=== PATIENT | male | born 1960 | race Caucasian/White ===

== ENCOUNTER 2016-05-31 20:28 | Inpatient (IN) | payer BC ==
[~2016-05-31] VITALS: Ht 177.8 cm; Wt 126.0 kg
[2016-05-31] MEDS ORDERED: SODIUM CHLORIDE 0.9% 500ML 500 ML IV STA (21:17)
[2016-05-31] MEDS ORDERED: OPTIRAY 320 IV PRN (21:30)
[2016-05-31 21:56] LABS: BASO % 0.6 %; BASO ABS # 0.06 K/uL (0-0.2); EOS % 0.7 %; HEMATOCRIT 36.7 % (42-52); IG% 0.3 %; LYMPH % 24.8 %; LYMPH ABS # 2.69 K/uL (1.2-3.4); MEAN CELL VOLUME 58.4 fL (80-100); MEAN CORPUSCULAR HEMOGLOBIN 19.3 pg (25-34); MEAN PLATELET VOLUME 9.2 fL (7.4-10.4); MONO % 11.8 %; NEUT % 61.8 %; PLATELET COUNT 189 K/uL (130-400); RED BLOOD COUNT 6.28 M/uL (4.7-6.1); WHITE BLOOD COUNT 10.84 K/uL (4.8-10.8)
[2016-05-31 22:15] LABS: BUN/CREATININE RATIO 18.5 (10-20); CALCIUM 8.7 mg/dl (8.5-10.1); INR 1.1 (0.9-1.1); MAGNESIUM 2.1 mg/dl (1.8-2.4); PARTIAL THROMBOPLASTIN RATIO 1.1; POTASSIUM 3.8 mmol/L (3.5-5.1); PROTHROMBIN TIME (PATIENT) 11.9 SECONDS (9.0-12.0)
[2016-05-31 22:19] LABS: CKMB/CK RATIO 1.2 (0-3.0)
--- NOTE | 2016-05-31 22:34 | DIAGNOSTIC IMAGING REPORT ---
CT ANGIOGRAM OF THE CHEST CLINICAL HISTORY: Peritoneal vein thrombus. Chest pain. COMPARISON STUDY: No previous studies for comparison. TECHNIQUE: Following the IV administration of 105 mL of Optiray-320, CT angiogram of the thorax was performed from the thoracic inlet to the lung bases utilizing the pulmonary embolus protocol. Images are reviewed in the axial, sagittal, and coronal planes. IV contrast was administered without complication. MIP imaging was performed. CT DOSE: 780.46 mGy.cm FINDINGS: No pathologically enlarged axillary mediastinal or hilar lymph nodes were visualized. There was no evidence of thoracic aortic dilatation. There is a right upper lobe pulmonary artery filling defect consistent with an acute embolus. No pleural effusions are visualized. There was no evidence of focal pulmonary consolidation. IMPRESSION: 1. Right upper lobe segmental pulmonary artery filling defect, consistent with acute pulmonary embolism. Electronically signed by: Madhu Vick M.D. 05/31/2016 10:33 PM Dictated Date/Time: 05/31/2016 10:29 PM
[2016-05-31] MEDS ORDERED: ENOXAPARIN 1 MG/KG SQ SCH (22:45)
[2016-05-31 22:49] LABS: COMPLETE YES; MICROCYTOSIS PRESENT
[2016-05-31] MEDS ORDERED: ENOXAPARIN 120 MG/0.8 ML SYR SQ STA (22:53)
[2016-05-31] MEDS ORDERED: ACETAMINOPHEN 325 MG TAB PO PRN (23:30)
[2016-05-31] MEDS ORDERED: ONDANSETRON INJ 2 MG/ML 2 ML VIAL IV PRN (23:30)
--- NOTE | 2016-05-31 23:41 | History and Physical ---
History & Physical Date & Time of Service: May 31, 2016 at 23:39 Chief Complaint: Dvt Peroneal Veins Primary Care Physician: No Doctor, Assigned History of Present Illness Source: patient, clinic records 55 year old male with no known past medical history presenting with Right leg swelling x 1 week. Patient used to follow up with Dr. Torres for PCP. Patient was at his usual state of health until last week when he started to notice right lower leg/calf swelling and pain. This progressed to the point that it affected his ambulation. No fever/chills. He denies chest pain, dyspnea, palpitations, nausea. Denies recent surgery, recent long plane or car rides, admits to being "a cough potato". 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 Patient presented to [facility] and was directed to [facility] for Right Leg US which showed Peroneal DVTs. He was then sent to the ED. Patient is hemodynamically stable. CT chest showed Right Upper Lobe Segmental Pulmonary Embolism. Hypercoagulable work up and Lovenox BID was started. On exam, patient is comfortable resting in bed. Denies chest pain, dyspnea, nausea, palpitations. Has mild-moderate right lower leg pain. No other symptoms. Past Medical/Surgical History Surgical Problems: (1) H/O knee surgery Status: Resolved Family History Cancer Diabetes mellitus Heart disease Hypertension Social History Smoking Status: Never Smoker Marital Status: Occupational Status: employed Multi-Drug Resistant Organisms History of MDRO: No Allergies Coded Allergies: Codeine (Verified Allergy, Severe, "BAD, BAD REACTION", 05/31/16) Polyethylene Glycol (Verified Allergy, Severe, CHEST PAIN, STOMACH PAIN AND UPSET, 05/31/16) Topiramate (Verified Allergy, Severe, CONFUSION, 05/31/16) Caffeine (Verified Allergy, Intermediate, SHAKINESS, 05/31/16) Meloxicam (Verified Allergy, Intermediate, ITCHINESS, LIGHTHEADEDNESS, GROGGY, 05/31/16) Penicillins (Verified Allergy, Unknown, RASH, 01/06/15) Home Medications No Active Prescriptions or Reported Meds Review of Systems Constitutional- no fever; no weight loss Eyes- no acute visual changes ENT- no sinus drainage; no pharyngitis Pulmonary- no cough, no wheezing, no shortness of breath Cardiac- no chest pain, no palpitations, no orthopnea, no dependent edema GI- no nausea, no vomiting, no diarrhea, no melena, no hematochezia - no dysuria, no hematuria Musculoskeletal- no arthralgias, no myalgias Derm- no rashes, no new skin lesions, no changing skin lesions Hematologic- no unusual bruising, no unusual bleeding Lymphatics- no adenopathy Endocrine- no polyuria or polydipsia; no heat or cold intolerance Neuro- no headaches, no focal neurologic symptoms Psych- no anxiety, no depression Physical Exam Vital Signs Date Time Temp Pulse Resp B/P Pulse Ox O2 Delivery O2 Flow Rate FiO2 05/31/16 21:50 80 20 122/79 95 Room Air 05/31/16 21:40 97 Room Air 05/31/16 20:35 37.7 91 16 129/88 96 Room Air General Appearance: WD/WN, no apparent distress Head: normocephalic, atraumatic Eyes: normal inspection, EOMI, sclerae normal ENT: normal ENT inspection, hearing grossly normal, pharynx normal Neck: supple, no adenopathy, thyroid normal, no JVD, trachea midline Respiratory/Chest: chest non-tender, lungs clear, normal breath sounds, no respiratory distress, no accessory muscle use Cardiovascular: regular rate, rhythm, no murmur Abdomen/GI: normal bowel sounds, non tender, soft Back: normal inspection, no CVA tenderness Extremities/Musculoskelatal: + pertinent finding (Right lower leg: (+) significant edema, moderate erythema and warmth, mild tenderness; left leg essentially normal) 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, no motor/sensory deficits, alert, normal mood/affect, normal reflexes, oriented x 3 Skin: normal color, warm/dry, no rash Lymphatic: no adenopathy Diagnostics Laboratory Results Results Past 24 Hours Test 05/31/16 21:40 05/31/16 21:51 05/31/16 23:30 Range/Units White Blood Count 10.84 4.8-10.8 K/uL Red Blood Count 6.28 4.7-6.1 M/uL Hemoglobin 12.1 14.0-18.0 g/dL Hematocrit 36.7 42-52 % Mean Corpuscular Volume 58.4 80-100 fL Mean Corpuscular Hemoglobin 19.3 25-34 pg Mean Corpuscular Hemoglobin Concent 33.0 32-36 g/dl Platelet Count 189 130-400 K/uL Mean Platelet Volume 9.2 7.4-10.4 fL Neutrophils (%) (Auto) 61.8 % Lymphocytes (%) (Auto) 24.8 % Monocytes (%) (Auto) 11.8 % Eosinophils (%) (Auto) 0.7 % Basophils (%) (Auto) 0.6 % Neutrophils # (Auto) 6.70 1.4-6.5 K/uL Lymphocytes # (Auto) 2.69 1.2-3.4 K/uL Monocytes # (Auto) 1.28 0.11-0.59 K/uL Eosinophils # (Auto) 0.08 0-0.5 K/uL Basophils # (Auto) 0.06 0-0.2 K/uL RDW Standard Deviation 31.9 36.4-46.3 fL RDW Coefficient of Variation 15.2 11.5-14.5 % Immature Granulocyte % (Auto) 0.3 % Immature Granulocyte # (Auto) 0.03 0.00-0.02 K/uL Microcytosis PRESENT Prothrombin Time 11.9 9.0-12.0 SECONDS Prothromb Time International Ratio 1.1 0.9-1.1 Activated Partial Thromboplast Time 28.3 21.0-31.0 SECONDS Partial Thromboplastin Ratio 1.1 Sodium Level 138 136-145 mmol/L Potassium Level 3.8 3.5-5.1 mmol/L Chloride Level 102 98-107 mmol/L Carbon Dioxide Level 27 21-32 mmol/L Anion Gap 9.0 3-11 mmol/L Blood Urea Nitrogen 19 7-18 mg/dl Creatinine 1.00 0.60-1.40 mg/dl Est Creatinine Clear Calc Drug Dose 103.6 ml/min Estimated GFR () 96.4 Estimated GFR (Non- 83.2 BUN/Creatinine Ratio 18.5 10-20 Random Glucose 95 70-99 mg/dl Calcium Level 8.7 8.5-10.1 mg/dl Magnesium Level 2.1 1.8-2.4 mg/dl Total Bilirubin 1.4 0.2-1 mg/dl Aspartate Amino Transf (AST/SGOT) 16 15-37 U/L Alanine Aminotransferase (ALT/SGPT) 22 12-78 U/L Alkaline Phosphatase 65 45-117 U/L Total Creatine Kinase 42 39-308 U/L Creatine Kinase MB 0.5 0.5-3.6 ng/ml Creatine Kinase MB Ratio 1.2 0-3.0 Total Protein 7.3 6.4-8.2 gm/dl Albumin 3.7 3.4-5.0 gm/dl Globulin 3.6 2.5-4.0 gm/dl Albumin/Globulin Ratio 1.0 0.9-2 Bedside Troponin I 0.000 0-0.045 ng/ml Diagnostic Radiology CT chest: IMPRESSION: 1. Right upper lobe segmental pulmonary artery filling defect, consistent with acute pulmonary embolism. Right Lower Leg Doppler: (+) Peroneal Vein DVT Impression Assessment and Plan 55 year old male with no known past medical history presenting with Right leg swelling x 1 week. ACUTE PULMONARY EMBOLISM, RIGHT UPPER LOBE, SEGMENTAL ACUTE DVT RIGHT PERONEAL VEIN - seems to be unprovoked - hemodynamically stable - hypercoagulable work up obtained, follow up echo ordered - Lovenox 1mg/kg q12h started transition to coumadin or NOACs in AM - will need Hematology referral for 1st Unprovoked DVT duration of treatment, possible screening for underlying malignancy, etc. MICROCYTIC ANEMIA - anemia panel ordered - no baseline Hg on file FULL CODE DISPOSITION lives at home with family VTE Prophylaxis VTE Risk Assessment Done? Y/N: Yes Risk Level: Moderate
--- NOTE | 2016-05-31 23:55 | EMERGENCY ROOM VISIT NOTE ---
History First contact with patient: 20:58 Chief Complaint: SWELLING TO EXTREMITY Stated Complaint: DVT PERONEAL VEINS History of Present Illness The patient is a 55 year old male who presents to the Emergency Department by private vehicle for evaluation of a DVT to the RIGHT lower extremity. He reports that he has had pain, redness, swelling to the RIGHT lower extremity over the past few days. He reports increasing pain and cramping with ambulation. He denies any numbness or tingling into the distal extremity. He was seen at the [facility] today and sent for ultrasounds. Ultrasound suspicious for DVT. The patient was directed to the emergency Department for further evaluation and management. Patient rates his current discomfort as a 4/10. He is tried nothing [id number] for symptoms. He denies any fevers, chills, headaches, dizziness, lightheadedness, chest pain, palpitations, shortness of breath, hemoptysis, nausea, vomiting, abdominal pain. The patient does drive a shuttle for a living. He denies any trauma to the affected area. He reports no history of smoking. There is no family history of blood clots or bleeding disorders. Review of Systems A complete 10-point Review of Systems was discussed with the patient, with pertinent positives and negatives listed in the History of Present Illness. All remaining Review of Systems questions can be considered negative unless otherwise specified. Past Medical/Surgical History Medical Problems: (1) Pulmonary embolism Surgical Problems: (1) H/O knee surgery Family History Family history was reviewed; no changes noted. Social History Smoking Status: Never Smoker Smokeless Tobacco Use: No Drug Use: none Marital Status: Housing Status: lives with significant other Occupation Status: employed Current/Historical Medications No Active Prescriptions or Reported Meds Allergies Coded Allergies: Codeine (Verified Allergy, Severe, "BAD, BAD REACTION", 05/31/16) Polyethylene Glycol (Verified Allergy, Severe, CHEST PAIN, STOMACH PAIN AND UPSET, 05/31/16) Topiramate (Verified Allergy, Severe, CONFUSION, 05/31/16) Caffeine (Verified Allergy, Intermediate, SHAKINESS, 05/31/16) Meloxicam (Verified Allergy, Intermediate, ITCHINESS, LIGHTHEADEDNESS, GROGGY, 05/31/16) Penicillins (Verified Allergy, Unknown, RASH, 01/06/15) Physical Exam Vital Signs Date Time Temp Pulse Resp B/P Pulse Ox O2 Delivery O2 Flow Rate FiO2 05/31/16 21:50 80 20 122/79 95 Room Air 05/31/16 21:40 97 Room Air 05/31/16 20:35 37.7 91 16 129/88 96 Room Air Pain Rating (0-10): 4 Physical Exam VITAL SIGNS - Vital signs and nursing notes were reviewed. GENERAL - 55-year-old male appearing his stated age who is in no acute distress. Communicates well with provider and answers questions appropriately. LUNGS - Chest wall symmetric without accessory muscle use, intercostals retractions, or central cyanosis. Normal vesicular breath sounds CTA B/L. No wheezes, rales, or rhonchi appreciated. CARDIAC - RRR with S1/S2. No murmur, rubs, or gallops appreciated. No reproducible tenderness to palpation appreciated over the anterior chest wall. EXTREMITIES - No clubbing or peripheral cyanosis. Moderate edema with erythema circumferential pattern noted to the RIGHT lower extremity extending from just below the knee to the ankle. Mildly warm to touch. No palpable cords. +3/5 radial and dorsalis pedis pulses palpated throughout. +5/5 strength noted in UE/ LE bilaterally. NEUROLOGIC - Cranial nerves II through XII grossly intact. Sensory intact to light touch throughout. PSYCH - A&Ox3 and cooperates fully with examiner. Pt is very pleasant and interacts well with examiner. Medical Decision & Procedures ER Provider Diagnostic Interpretation: Radiological imaging and reports were reviewed by myself. Radiologist's Interpretation as follows: CT ANGIOGRAM OF THE CHEST CLINICAL HISTORY: Peritoneal vein thrombus. Chest pain. COMPARISON STUDY: No previous studies for comparison. TECHNIQUE: Following the IV administration of 105 mL of Optiray-320, CT angiogram of the thorax was performed from the thoracic inlet to the lung bases utilizing the pulmonary embolus protocol. Images are reviewed in the axial, sagittal, and coronal planes. IV contrast was administered without complication. MIP imaging was performed. CT DOSE: 780.46 mGy.cm FINDINGS: No pathologically enlarged axillary mediastinal or hilar lymph nodes were visualized. There was no evidence of thoracic aortic dilatation. There is a right upper lobe pulmonary artery filling defect consistent with an acute embolus. No pleural effusions are visualized. There was no evidence of focal pulmonary consolidation. IMPRESSION: 1. Right upper lobe segmental pulmonary artery filling defect, consistent with acute pulmonary embolism. Laboratory Results 05/31/16 21:40 Red Blood Count 6.28, Mean Corpuscular Volume 58.4, Mean Corpuscular Hemoglobin 19.3, Mean Corpuscular Hemoglobin Concent 33.0, Mean Platelet Volume 9.2, Neutrophils (%) (Auto) 61.8, Lymphocytes (%) (Auto) 24.8, Monocytes (%) (Auto) 11.8, Eosinophils (%) (Auto) 0.7, Basophils (%) (Auto) 0.6, Neutrophils # (Auto ) 6.70, Lymphocytes # (Auto) 2.69, Monocytes # (Auto) 1.28, Eosinophils # (Auto ) 0.08, Basophils # (Auto) 0.06 05/31/16 21:40 Test 05/31/16 21:40 05/31/16 21:51 05/31/16 23:30 White Blood Count 10.84 K/uL (4.8-10.8) Red Blood Count 6.28 M/uL (4.7-6.1) Hemoglobin 12.1 g/dL (14.0-18.0) Hematocrit 36.7 % (42-52) Mean Corpuscular Volume 58.4 fL (80-100) Mean Corpuscular Hemoglobin 19.3 pg (25-34) Mean Corpuscular Hemoglobin Concent 33.0 g/dl (32-36) Platelet Count 189 K/uL (130-400) Mean Platelet Volume 9.2 fL (7.4-10.4) Neutrophils (%) (Auto) 61.8 % Lymphocytes (%) (Auto) 24.8 % Monocytes (%) (Auto) 11.8 % Eosinophils (%) (Auto) 0.7 % Basophils (%) (Auto) 0.6 % Neutrophils # (Auto) 6.70 K/uL (1.4-6.5) Lymphocytes # (Auto) 2.69 K/uL (1.2-3.4) Monocytes # (Auto) 1.28 K/uL (0.11-0.59) Eosinophils # (Auto) 0.08 K/uL (0-0.5) Basophils # (Auto) 0.06 K/uL (0-0.2) RDW Standard Deviation 31.9 fL (36.4-46.3) RDW Coefficient of Variation 15.2 % (11.5-14.5) Immature Granulocyte % (Auto) 0.3 % Immature Granulocyte # (Auto) 0.03 K/uL (0.00-0.02) Microcytosis PRESENT Prothrombin Time 11.9 SECONDS (9.0-12.0) Prothromb Time International Ratio 1.1 (0.9-1.1) Activated Partial Thromboplast Time 28.3 SECONDS (21.0-31.0) Partial Thromboplastin Ratio 1.1 Anion Gap 9.0 mmol/L (3-11) Est Creatinine Clear Calc Drug Dose 103.6 ml/min Estimated GFR () 96.4 Estimated GFR (Non- 83.2 BUN/Creatinine Ratio 18.5 (10-20) Calcium Level 8.7 mg/dl (8.5-10.1) Magnesium Level 2.1 mg/dl (1.8-2.4) Total Bilirubin 1.4 mg/dl (0.2-1) Aspartate Amino Transf (AST/SGOT) 16 U/L (15-37) Alanine Aminotransferase (ALT/SGPT) 22 U/L (12-78) Alkaline Phosphatase 65 U/L (45-117) Total Creatine Kinase 42 U/L (39-308) Creatine Kinase MB 0.5 ng/ml (0.5-3.6) Creatine Kinase MB Ratio 1.2 (0-3.0) Total Protein 7.3 gm/dl (6.4-8.2) Albumin 3.7 gm/dl (3.4-5.0) Globulin 3.6 gm/dl (2.5-4.0) Albumin/Globulin Ratio 1.0 (0.9-2) Bedside Troponin I 0.000 ng/ml (0-0.045) Procedure Patient was placed on the bus monitor and monitored throughout the entire extent of their stay. In addition, the patient's pulse oximetry was monitored throughout the entire stay. Any abnormalities or aberrancies were addressed appropriately. ECG Indication: other Rate (beats per minute): 84 Rhythm: normal sinus Findings: LAFB, no acute ischemic change, no ectopy Comparison ECG Date: no prior available ED Course Patient was seen and evaluated by myself. Labs were drawn, saline lock in place. Palpation ultrasound was assessed. EKG was obtained. CTA of the chest was ordered. Laboratory results demonstrate a mild leukocytosis and anemia. He has no significant electrolyte abnormalities. Cardiac enzymes and troponin are negative. CT results above. Laboratory results and imaging studies were reviewed with the patient who acknowledges understanding. The patient was treated with initial dose of Lovenox at the request of the hospitalist. Patient was admitted in stable condition. Medical Decision Given the patient's presentation and stated complaints, I did elect to perform the above-mentioned workup. The patient presents after being diagnosed with acute DVT. On initial assessment, the patient is found to have a low-grade fever and is slightly tachycardic. In the setting of DVT, concern is obviously for underlying PE. CTA was immediately obtained after patient's creatinine was cleared. CT confirms suspicion for acute PE in the RIGHT upper lobe. Patient is hemodynamically stable. [facility] with [facility]ox [facility] Patient admitted in stable condition. In the evaluation and treatment of this patient, the following differential diagnoses were considered: ID, ASC, Dysrhythmia, Angina, Mediastinitis, GERD, Esophagitis, PE, Pneumonia, Bronchitis, Costochondritis, Rib Fracture, Zoster. Impression Primary Impression: Pulmonary embolism Additional Impression: DVT (deep venous thrombosis) Departure Information Dispostion Admitted as an inpatient Condition FAIR Prescriptions No Active Prescriptions or Reported Meds Referrals No Doctor, Assigned (PCP) Patient Instructions Critical Access Hospital Problem Qualifiers Primary Impression: Pulmonary embolism Pulmonary embolism type: other Chronicity: acute Acute cor pulmonale presence: without acute cor pulmonale Qualified Codes: I26.99 - Other pulmonary embolism without acute cor pulmonale Additional Impression: DVT (deep venous thrombosis) DVT location: lower extremity Affected thrombotic vein of extremity: unspecified lower extremity distal vein Laterality: right Chronicity: acute Qualified Codes: I82.4Z1 - Acute embolism and thrombosis of unspecified deep veins of right distal lower extremity
[2016-06-01] VITALS (10 sets, daily range): BP systolic 124–151; BP diastolic 74–87; PULSE 65–82; TEMP 36.6–37; O2SAT 95–98; Ht 177.8 cm; Wt 126.0 kg
[2016-06-01 06:17] LABS: BASO % 0.2 %; BASO ABS # 0.02 K/uL (0-0.2); EOS % 1.6 %; HEMATOCRIT 34.5 % (42-52); IG% 0.2 %; LYMPH % 25.1 %; LYMPH ABS # 2.42 K/uL (1.2-3.4); MEAN CELL VOLUME 58.8 fL (80-100); MEAN CORPUSCULAR HEMOGLOBIN 18.9 pg (25-34); MEAN CORPUSCULAR HGB CONC 32.2 g/dl (32-36); MEAN PLATELET VOLUME 9.2 fL (7.4-10.4); MONO % 12.7 %; NEUT % 60.2 %; PLATELET COUNT 178 K/uL (130-400); RED BLOOD COUNT 5.87 M/uL (4.7-6.1); WHITE BLOOD COUNT 9.66 K/uL (4.8-10.8)
[2016-06-01 06:49] LABS: COMPLETE YES; MICROCYTOSIS PRESENT; OVALOCYTES 1+
[2016-06-01 06:51] LABS: BUN/CREATININE RATIO 19.5 (10-20); CALCIUM 8.5 mg/dl (8.5-10.1); CREATININE 0.97 mg/dl (0.60-1.40); POTASSIUM 3.8 mmol/L (3.5-5.1)
[2016-06-01 06:58] LABS: FERRITIN 265.4 ng/ml (8.0-388.0)
[2016-06-01] MEDS ORDERED: INFLUENZA ADMINISTRATION CHARGE ONE (08:00)
[2016-06-01] MEDS ORDERED: INFLUENZA VIRUS QUAD VACCINE 0.5 ML SYR IM. ONE (08:00)
[2016-06-01] MEDS: ENOXAPARIN 120 MG/0.8 ML SYR SQ SCH ×2 (10:35→21:34)
--- NOTE | 2016-06-01 12:16 | ECHOCARDIOGRAM REPORT ---
*NOTICE TO RECEIVING LIBERTARIAN AGENCY This information is strictly Confidential and protected under [place] law. [place] law prohibits you from making any further disclosure of this information unless further disclosure is expressly permitted by the written consent of the person to whom it pertains or is authorized by law. A general authorization for the release of medical or other information is not sufficient for this purpose. Hospital accepts no responsibility if the information is made available to any other person, INCLUDING THE PATIENT. Interpretation Summary * Name: JEANNETTE COOPER Study Date: 06/01/2016 09:48 AM BP: 130/83 mmHg * Patient Location: C.2T\S\S229\S\1 HR: 76 * : 1960 (M/d/yyyy) Gender: Male Height: 68 in * Age: 55 yrs Ethnicity: CA Weight: 268 lb * Ordering Physician: Goyo Lopez * Performed By: Gladis Gomez RDCS * * Reason For Study: Pulmonary Embolism * BSA: 2.3 m2 * -- Conclusions -- * The left ventricle is normal in size. * There is mild concentric left ventricular hypertrophy. * The left ventricular wall motion is normal. * Ejection Fraction = 55-60%. * There is trace tricuspid regurgitation. * Doppler findings do not suggest pulmonary hypertension. * Normal inferior vena cava diameter and respiratory variation suggests normal central venous pressure. Procedure Details * A complete two-dimensional transthoracic echocardiogram was performed (2D, M-mode, Doppler and color flow Doppler). * A contrast injection of Definity was performed to improve assessment of LV function. * Contrast was injected into an intravenous site in the right arm. * One vial of Definity ultrasound contrast was diluted in normal saline to a total volume of 10 ml. A total of '2' ml of solution was administered during imaging. * Lot # [id number] of Definity utilized for procedure. * Expiration date 1 MAY 12. * The attending nurse who injected the contrast agent was Parish Gaming RN. Left Ventricle * The left ventricle is normal in size. * There is mild concentric left ventricular hypertrophy. * Ejection Fraction = 55-60%. * Left ventricular systolic function is normal. * The left ventricular wall motion is normal. Right Ventricle * The right ventricle is normal in size and function. Atria * The left atrial size is normal. * Right atrial size is normal. * No ASD detected; PFO is not assessed. Mitral Valve * The mitral valve anatomy is normal. * There is no mitral valve stenosis. * There is trace mitral regurgitation. Tricuspid Valve * The tricuspid valve anatomy is normal. * There is no tricuspid stenosis. * There is trace tricuspid regurgitation. * Doppler findings do not suggest pulmonary hypertension. Aortic Valve * The aortic valve is trileaflet. * No hemodynamically significant valvular aortic stenosis. * No aortic regurgitation is present. Pulmonic Valve * The pulmonic valve is not well visualized. Great Vessels * The aortic root is normal size. Pericardium/Pleural * There is no pericardial effusion. Great Vessels * Normal inferior vena cava diameter and respiratory variation suggests normal central venous pressure. Left Ventricular Diastolic Function * Grade I diastolic dysfunction, (abnormal relaxation pattern). MMode 2D Measurements and Calculations IVSd 1.3 cm LVIDd 5.0 cm LVIDs 3.6 cm LVPWd 1.1 cm IVS/LVPW 1.1 FS 28.4 % EDV(Teich) 117.6 ml ESV(Teich) 53.4 ml EF(Teich) 54.5 % EDV(cubed) 124.1 ml ESV(cubed) 45.6 ml EF(cubed) 63.2 % LV mass(C)d 232.0 grams LV mass(C)dI 100.2 grams/m\S\2 CO(Teich) 4.4 l/min CI(Teich) 1.9 l/min/m\S\2 SV(Teich) 64.1 ml SI(Teich) 27.7 ml/m\S\2 CO(cubed) 5.4 l/min CI(cubed) 2.3 l/min/m\S\2 SV(cubed) 78.5 ml SI(cubed) 33.9 ml/m\S\2 Ao root diam 2.8 cm Ao root area 6.4 cm\S\2 ACS 1.6 cm LA dimension 2.6 cm asc Aorta Diam 3.2 cm LA/Ao 0.91 LVOT diam 2.0 cm LVOT area 3.1 cm\S\2 LVAd ap4 29.3 cm\S\2 LVLd ap4 7.4 cm EDV(MOD-sp4) 95.3 ml LVAs ap4 17.3 cm\S\2 LVLs ap4 6.3 cm ESV(MOD-sp4) 40.5 ml EF(MOD-sp4) 57.5 % LVAd ap2 24.6 cm\S\2 LVLd ap2 7.6 cm EDV(MOD-sp2) 64.8 ml LVAs ap2 13.7 cm\S\2 LVLs ap2 5.9 cm ESV(MOD-sp2) 26.4 ml EF(MOD-sp2) 59.3 % CO(MOD-sp4) 3.8 l/min CI(MOD-sp4) 1.6 l/min/m\S\2 SV(MOD-sp4) 54.8 ml SI(MOD-sp4) 23.7 ml/m\S\2 CO(MOD-sp2) 2.6 l/min CI(MOD-sp2) 1.1 l/min/m\S\2 SV(MOD-sp2) 38.4 ml SI(MOD-sp2) 16.6 ml/m\S\2 Doppler Measurements and Calculations MV E max mary 66.5 cm/sec MV A max mary 75.7 cm/sec MV E/A 0.88 MV dec time 0.25 sec Ao V2 max 121.6 cm/sec Ao max PG 5.9 mmHg Ao max PG (full) 1.4 mmHg SHARAD(V,A) 2.7 cm\S\2 SHARAD(V,D) 2.7 cm\S\2 LV V1 max PG 4.5 mmHg LV V1 max 106.2 cm/sec PA V2 max 101.8 cm/sec PA max PG 4.1 mmHg PA acc slope 599.9 cm/sec\S\2 PA acc time 0.11 sec TR max mary 101.8 cm/sec PA pr(Accel) 29.9 mmHg
--- NOTE | 2016-06-01 19:30 | Progress Note ---
Internal Med Progress Note Date of Service: Jun 01, 2016. Provider Documentation: SUBJECTIVE: feels fine , no complain of chest pain or SOB no hypoxia , in room air ambulating to bathroom and hallway no dizzy spell , no GAO no chest pain with deep inspiration rt lower ext pain and swelling has improved OBJECTIVE: Vital Signs-as noted below Exam: General-no sign of distress, pleasant Eyes-sclera non icteric ENT-NAD Neck-no thyromegaly , trachea midline Lungs-CTA, no wheeze or rales Heart-regular S1/S2 Abdomen-soft, non tender Extremities-mild tenderness on rt lower ext calf area, no erythema or swelling Neuro-AAO x3, no focal neurological deficit Lab data as noted below. 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 no family hx of thrombotic disease found to have rt lower ext Below Knee thrombus , Acute rt upper lobe PE no complain of chest pain , no hypoxia no tachycardia - hemodynamically stable - hypercoagulable work up ordered need to be followed echo : show normal wall motion , LV function , no evidence of pulmonary HTN - Lovenox 1mg/kg q12h started ordered for Coumadin in AM may need 6-9 months of anticoagulation - will need Hematology referral for 1st Unprovoked DVT duration of treatment, possible screening for underlying malignancy-colonoscopy screen pt mentions of chronic fatigue symptoms /no GAO ordered for PSA , Alpha fetoprotein , CEA level in AM MICROCYTIC ANEMIA/FE DEFICIENCY ANEMIA chronic no prior screening colonoscopy done Last CBC in 1999 show HB 12 MCV < 60 Hb electrophoresis in 2004 -increased Hb A2 suggestive of Thalassemia trait Fe panel suggestive of Fe deficiency anemia added Fe supplement will need to follow up with Heme onc as out pt -hx of hemorrhoids see at [facility] with Surgery Dr Lamb in 08/2014 found to have external hemorrhoids with anal fissure - Anal fissure was treated medically with Topical Cardizem ointment no active bleeding reported recently will need to schedule out pt colonoscopic screening follow H&H while on active anticoagulation FULL CODE DISPOSITION lives at home with family DVT PROPHYLAXIS Lovenox sub q therapeutic dose /Coumadin DISPOSITION Discharge home possibly in next 24-48 hrs with Lovenox bridge therapy and Coumadin pt will need to establish care with Family Physician -Interested to follow up with Deidre REES with [facility] Beatrice STODD[facility] need to establish care with anticoagulation Clinic for Pt/INR monitoring and Coumadin dosing Vital Signs: Date Time Temp Pulse Resp B/P Pulse Ox O2 Delivery O2 Flow Rate FiO2 06/01/16 16:00 97 Room Air 06/01/16 15:21 36.7 65 20 144/87 97 Room Air 06/01/16 12:29 36.6 71 20 145/77 96 Room Air 06/01/16 12:00 Room Air 06/01/16 08:09 37.0 76 16 130/83 95 Room Air 06/01/16 08:00 95 Room Air 06/01/16 04:00 Room Air 06/01/16 03:39 36.8 67 19 131/82 97 Room Air 06/01/16 01:28 36.8 82 22 149/82 Room Air 06/01/16 00:59 80 17 125/79 95 Room Air 06/01/16 00:44 78 18 06/01/16 00:29 76 10 06/01/16 00:14 91 21 Room Air 05/31/16 23:54 81 05/31/16 23:49 80 18 128/74 95 Room Air 05/31/16 21:50 80 20 122/79 95 Room Air 05/31/16 21:40 97 Room Air 05/31/16 20:35 37.7 91 16 129/88 96 Room Air Lab Results: Results Past 24 Hours Test 05/31/16 21:40 05/31/16 21:51 05/31/16 23:30 06/01/16 05:40 Range/Units White Blood Count 10.84 9.66 4.8-10.8 K/uL Red Blood Count 6.28 5.87 4.7-6.1 M/uL Hemoglobin 12.1 11.1 14.0-18.0 g/dL Hematocrit 36.7 34.5 42-52 % Mean Corpuscular Volume 58.4 58.8 80-100 fL Mean Corpuscular Hemoglobin 19.3 18.9 25-34 pg Mean Corpuscular Hemoglobin Concent 33.0 32.2 32-36 g/dl Platelet Count 189 178 130-400 K/uL Mean Platelet Volume 9.2 9.2 7.4-10.4 fL Neutrophils (%) (Auto) 61.8 60.2 % Lymphocytes (%) (Auto) 24.8 25.1 % Monocytes (%) (Auto) 11.8 12.7 % Eosinophils (%) (Auto) 0.7 1.6 % Basophils (%) (Auto) 0.6 0.2 % Neutrophils # (Auto) 6.70 5.82 1.4-6.5 K/uL Lymphocytes # (Auto) 2.69 2.42 1.2-3.4 K/uL Monocytes # (Auto) 1.28 1.23 0.11-0.59 K/uL Eosinophils # (Auto) 0.08 0.15 0-0.5 K/uL Basophils # (Auto) 0.06 0.02 0-0.2 K/uL RDW Standard Deviation 31.9 31.9 36.4-46.3 fL RDW Coefficient of Variation 15.2 15.2 11.5-14.5 % Immature Granulocyte % (Auto) 0.3 0.2 % Immature Granulocyte # (Auto) 0.03 0.02 0.00-0.02 K/uL Microcytosis PRESENT PRESENT Prothrombin Time 11.9 9.0-12.0 SECONDS Prothromb Time International Ratio 1.1 0.9-1.1 Activated Partial Thromboplast Time 28.3 21.0-31.0 SECONDS Partial Thromboplastin Ratio 1.1 Sodium Level 138 139 136-145 mmol/L Potassium Level 3.8 3.8 3.5-5.1 mmol/L Chloride Level 102 103 98-107 mmol/L Carbon Dioxide Level 27 27 21-32 mmol/L Anion Gap 9.0 9.0 3-11 mmol/L Blood Urea Nitrogen 19 19 7-18 mg/dl Creatinine 1.00 0.97 0.60-1.40 mg/dl Est Creatinine Clear Calc Drug Dose 103.6 112.0 ml/min Estimated GFR () 96.4 100.0 Estimated GFR (Non- 83.2 86.3 BUN/Creatinine Ratio 18.5 19.5 10-20 Random Glucose 95 102 70-99 mg/dl Calcium Level 8.7 8.5 8.5-10.1 mg/dl Magnesium Level 2.1 1.8-2.4 mg/dl Total Bilirubin 1.4 0.2-1 mg/dl Aspartate Amino Transf (AST/SGOT) 16 15-37 U/L Alanine Aminotransferase (ALT/SGPT) 22 12-78 U/L Alkaline Phosphatase 65 45-117 U/L Total Creatine Kinase 42 39-308 U/L Creatine Kinase MB 0.5 0.5-3.6 ng/ml Creatine Kinase MB Ratio 1.2 0-3.0 Total Protein 7.3 6.4-8.2 gm/dl Albumin 3.7 3.4-5.0 gm/dl Globulin 3.6 2.5-4.0 gm/dl Albumin/Globulin Ratio 1.0 0.9-2 Bedside Troponin I 0.000 0-0.045 ng/ml Ovalocytes 1+ Iron Level 28 35-175 mcg/dl Total Iron Binding Capacity 272 250-450 mcg/dl Transferrin 198 200-360 mg/dl Transferrin % Saturation 10 20-50 % Ferritin 265.4 8.0-388.0 ng/ml Vitamin B12 Level 247 211-911 pg/mL Folate 14.49 >5.38 ng/mL
[2016-06-01] MEDS ORDERED: FRRS300 PO (19:54)
[2016-06-01] MEDS ORDERED: CMD75 PO (19:54)
[2016-06-01] MEDS ORDERED: LVNIS120 SQ (19:54)
--- NOTE | 2016-06-01 19:58 | Discharge Instructions ---
Discharge Instructions Date of Service Jun 01, 2016. Admission Reason for Admission: Pulmonary Embolism Discharge Discharge Diagnosis / Problem: (1) DVT (deep venous thrombosis) (2) Pulmonary embolism VTE Date & Time Date of VTE Diagnosis: May 31, 2016 Time of VTE Diagnosis: 22:29 Discharge Goals Goal(s): Improve disease control, Diagnostic testing, Therapeutic intervention Activity Recommendations Activity Limitations: resume your previous activity Driving or Machine Use: no limitations . Instructions / Follow-Up Instructions / Follow-Up HOSPITAL FOLLOW UP WITH DEIDRE REES IN A WEEK , PLEASE CALL OFFICE FOR APPOINTMENT FOLLOW UP WITH ANTICOAGULATION CLINIC -CLINIC WILL CALL WITH APPOINTMENT LAB WORK : Saturday06/05/16 FOR PT/INR CHECK [facility] [address] [place] [address] PLEASE FOLLOW UP AT THE ANTICOAGULATION CLINIC FOR FURTHER RECOMMENDATION Medication Instructions: * Warfarin is a medicine prescribed to prevent blood clots * Warfarin will thin your blood and help prevent new clots * Take your medications exactly as directed * Never skip a dose. Never take a double dose. If you miss a dose, take it as soon as you remember * It is important for your doctor to monitor your prothrombin time (PT). This is a lab test * Keep your appointment for lab tests Risk of Adverse Drug Reactions and Interactions: * Warfarin increases your risk of bleeding * The food you eat and other medications you take can affect how Warfarin works in your body * Ask your doctor about daily aspirin therapy * It is very important to talk with your doctor about all of the other medicines , antibiotics, vitamins or herbal products that you are taking * All of your medication must be approved by your doctor, including new medicines, as well as medicines you have taken before you started taking Warfarin Diet: * In order for Warfarin to work properly, it is important to keep your intake of Vitamin K as consistent as possible * You should avoid any sudden change in Vitamin K intake * Report any significant changes in your diet or weight to your doctor Call your Primary Care doctor if you experience any of the following: * Swelling or Pain in your leg * Sudden, continuous pain deep in a muscle * Pain that worsens when you are active or when you stand still for a long time * Chest Pain * Sudden Shortness of Breath * Rapid or pounding heart beat * Fainting * Dizziness * Cough with blood or bloody sputum * Sweating more than normal * Bruises * Heavy or uncontrolled bleeding * Blood in your urine, stool or vomit * Black or tarry stools Caring for Your Self at Home: * Avoid sitting, standing or lying down for long periods without moving your legs and feet * When traveling by car, stop to get out and move around at least once every 3 hours * On long airplane, train or bus rides, get up and move around when possible * If you can't get up, wiggle your toes and tighten your calves to keep your blood moving Follow Up: It is important for you to keep your follow up appointments with your medical provider. Current Hospital Diet Patient's current hospital diet: AHA Diet (Heart Healthy) Discharge Diet Recommended Diet: Regular Diet Pending Studies Studies pending at discharge: yes List of pending studies: PT/INR CHECK Work Instructions Return To Work: after follow-up (with FAMILY PHYSICIAN ) Medical Emergencies . Who to Call and When: Medical Emergencies: If at any time you feel your situation is an emergency, please call 911 immediately. . Non-Emergent Contact Non-Emergency issues call your: Primary Care Provider Contact Number: Deidre MoralesN.P. . . "Provider Documentation" section prepared by Sarah Kerr. VTE Core Measure Inpt VTE Proph given/why not?: Enoxaparin (Lovenox)SQ, Warfarin (Coumadin) Reason no anticoag overlap I/P: Treatment provided - N/A Reason no anticoag overlap @DC: Treatment provided - N/A [place] Drug Monitoring Program Search Results: no issues identified
[2016-06-02 07:24] LABS: INR 1.1 (0.9-1.1)
[2016-06-02 07:55] VITALS: BP 138/86; PULSE 72; TEMP 36.6; O2SAT 97
[2016-06-02] MEDS: ASCORBIC ACID 500 MG TAB PO SCH (08:07)
[2016-06-02] MEDS: FERROUS SULFATE 325 MG TAB PO SCH ×2 (08:08→17:34)
[2016-06-02] MEDS: WARFARIN SOD 7.5 MG TAB PO SCH (08:10)
[2016-06-02] MEDS: ENOXAPARIN 120 MG/0.8 ML SYR SQ SCH ×2 (08:48→21:21)
[2016-06-02] MEDS ORDERED: WARFARIN SOD 5 MG TAB PO SCH (09:00)
[2016-06-02 10:17] VITALS: O2SAT 97
[2016-06-02 14:41] VITALS: BP 146/84; PULSE 68; TEMP 36.7; O2SAT 97
--- NOTE | 2016-06-02 21:46 | Progress Note ---
Internal Med Progress Note Date of Service: Jun 02, 2016. Provider Documentation: SUBJECTIVE: no complain of chest pain or SOB no episode of GI bleed -no blood in stool ( hx of ext hemorrhoids ) has pain on rt leg -improved OBJECTIVE: Vital Signs-as noted below Exam: General-no sign of distress, pleasant Eyes-sclera non icteric ENT-NAD Neck-no thyromegaly , trachea midline Lungs-CTA, no wheeze or rales Heart-regular S1/S2 Abdomen-soft, non tender Extremities-mild tenderness on rt lower ext calf area, no erythema or swelling Neuro-AAO x3, no focal neurological deficit Lab data as noted below. 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 no family hx of thrombotic disease found to have rt lower ext Below Knee thrombus , Acute rt upper lobe PE - hypercoagulable work up ordered need to be followed echo : show normal wall motion , LV function , no evidence of pulmonary HTN - Lovenox 1mg/kg q12h started started on Coumadin may need 6-9 months of anticoagulation - will need Hematology referral for 1st Unprovoked DVT duration of treatment, possible screening for underlying malignancy-colonoscopy screen pt mentions of chronic fatigue symptoms /no GAO tumor markers PSA , Alpha fetoprotein , CEA level -wnl will be discharged home with Coumadin and Lovenox bridge Goal INR 2-3 MICROCYTIC ANEMIA/FE DEFICIENCY ANEMIA chronic had prior screening colonoscopy done in 2009 -was told normal repeat scope in 10 yrs Last CBC in 1999 show HB 12 MCV < 60 Hb electrophoresis in 2004 -increased Hb A2 suggestive of Thalassemia trait Fe panel suggestive of Fe deficiency anemia added Fe supplement will need to follow up with Heme onc as out pt -hx of hemorrhoids see at [facility] with Surgery Dr Lamb in 08/2014 found to have external hemorrhoids with anal fissure - Anal fissure was treated medically with Topical Cardizem ointment no active bleeding reported recently will need to schedule out pt colonoscopic screening follow H&H while on active anticoagulation FULL CODE DISPOSITION lives at home with family DVT PROPHYLAXIS Lovenox sub q therapeutic dose /Coumadin DISPOSITION Discharge home tomorrow with Lovenox bridge therapy and Coumadin pt will need to establish care with Family Physician -Interested to follow up with Deidre REES with [facility] Beatrice STODDARD [facility] need to establish care with anticoagulation Clinic for Pt/INR monitoring and Coumadin dosing Vital Signs: Date Time Temp Pulse Resp B/P Pulse Ox O2 Delivery O2 Flow Rate FiO2 06/02/16 16:00 Room Air 06/02/16 14:41 36.7 68 20 146/84 97 Room Air 06/02/16 10:17 97 Room Air 06/02/16 08:00 Room Air 06/02/16 07:55 36.6 72 20 138/86 97 Room Air 06/02/16 00:00 Room Air 06/01/16 23:42 36.9 77 18 151/77 95 Room Air Lab Results: Results Past 24 Hours Test 06/02/16 06:51 Range/Units Prothrombin Time 12.0 9.0-12.0 SECONDS Prothromb Time International Ratio 1.1 0.9-1.1 Carcinoembryonic Antigen < 0.5 0-2.5 ng/ml Prostate Specific Antigen 0.624 0.000-4.000 ng/ml
[2016-06-02 23:28] VITALS: BP 101/64; PULSE 65; TEMP 37; O2SAT 94
[2016-06-03 07:07] LABS: INR 1.1 (0.9-1.1); PROTHROMBIN TIME (PATIENT) 12.2 SECONDS (9.0-12.0)
[2016-06-03 07:40] VITALS: BP 110/63; PULSE 61; TEMP 36.5; O2SAT 97
[2016-06-03] MEDS: FERROUS SULFATE 325 MG TAB PO SCH (08:17)
[2016-06-03] MEDS: ASCORBIC ACID 500 MG TAB PO SCH (08:18)
[2016-06-03] MEDS ORDERED: LOVENOX TEACHING KIT SCH (09:30)
[2016-06-03] MEDS: ENOXAPARIN 120 MG/0.8 ML SYR SQ SCH (09:37)
--- NOTE | 2016-06-03 14:03 | Progress Note ---
Internal Med Progress Note Date of Service: Jun 03, 2016. Provider Documentation: SUBJECTIVE: feels fine daughter came , comfortable with home Lovenox administration no complain of chest pain or SOB improvement of rt lower ext pain and swelling OBJECTIVE: Vital Signs-as noted below Exam: General-no sign of distress, pleasant Eyes-sclera non icteric ENT-NAD Neck-no thyromegaly , trachea midline Lungs-CTA, no wheeze or rales Heart-regular S1/S2 Abdomen-soft, non tender Extremities-mild tenderness on rt lower ext calf area, no erythema or swelling Neuro-AAO x3, no focal neurological deficit Lab data as noted below. 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 no family hx of thrombotic disease found to have rt lower ext Below Knee thrombus , Acute rt upper lobe PE - hypercoagulable work up ordered need to be followed echo : show normal wall motion , LV function , no evidence of pulmonary HTN - Lovenox 1mg/kg q12h started on Coumadin INR 7.5 today may need 6-9 months of anticoagulation - will need Hematology referral for 1st Unprovoked DVT duration of treatment, possible screening for underlying malignancy-colonoscopy screen pt mentions of chronic fatigue symptoms /no GAO tumor markers PSA , Alpha fetoprotein , CEA level -wnl will be discharged home today with Coumadin and Lovenox bridge Goal INR 2-3 MICROCYTIC ANEMIA/FE DEFICIENCY ANEMIA chronic had prior screening colonoscopy done in 2009 -was told normal repeat scope in 10 yrs Last CBC in 1999 show HB 12 MCV < 60 Hb electrophoresis in 2004 -increased Hb A2 suggestive of Thalassemia trait Fe panel suggestive of Fe deficiency anemia added Fe supplement will need to follow up with Heme onc as out pt [facility] found to have external hemorrhoids with anal fissure - Anal fissure was treated medically with Topical Cardizem ointment no active bleeding reported recently had out pt screening colonoscopy tomorrow -7 yrs back , was normal study no drop in H&H while on active anticoagulation FULL CODE DISPOSITION lives at home with family DVT PROPHYLAXIS Lovenox sub q therapeutic dose /Coumadin DISPOSITION Discharge home today Lovenox bridge therapy and Coumadin pt will need to establish care with Family Physician -Interested to follow up with Deidre REES with [facility] Beatrice STODDARD [place] pt will follow up with anticoagulation Clinic at [facility] for Pt/INR monitoring and Coumadin dosing Vital Signs: Date Time Temp Pulse Resp B/P Pulse Ox O2 Delivery O2 Flow Rate FiO2 06/03/16 08:00 Room Air 06/03/16 07:40 36.5 61 18 110/63 97 Room Air 06/03/16 00:00 Room Air 06/02/16 23:28 37.0 65 18 101/64 94 Room Air 06/02/16 20:00 Room Air 06/02/16 16:00 Room Air 06/02/16 14:41 36.7 68 20 146/84 97 Room Air Lab Results: Results Past 24 Hours Test 06/03/16 06:34 Range/Units Prothrombin Time 12.2 9.0-12.0 SECONDS Prothromb Time International Ratio 1.1 0.9-1.1
--- NOTE | 2016-06-03 14:08 | Discharge Summary ---
Discharge Summary Date of Service Jun 03, 2016. Discharge Summary Admission Date: May 31, 2016 at 23:33 Discharge Date: Jun 03, 2016 Discharge Disposition: Home Principal Diagnosis: Pulmonary Embolism Pending Studies/Follow-Up: Instructions / Follow-Up HOSPITAL FOLLOW UP WITH DEIDRE REES IN A WEEK , PLEASE CALL OFFICE FOR APPOINTMENT FOLLOW UP WITH ANTICOAGULATION CLINIC LAB WORK : Saturday06/05/16 FOR PT/INR CHECK [facility] [address] [place] [address] PLEASE FOLLOW UP AT THE ANTICOAGULATION CLINIC FOR FURTHER RECOMMENDATION Medication Reconciliation New Medications: Enoxaparin (Lovenox) 120 Mg/0.8 Ml Inj 120 MG SQ Q12 for 4 Days, #4 EA Ferrous Sulfate (Ferrous Sulfate) 325 Mg Tab 325 MG PO BIDM for 30 Days, #30 TAB 4 Refills Warfarin Sod (Coumadin) 7.5 Mg Tab 7.5 MG PO DAILY for 30 Days, #30 TAB 5 Refills Referrals At Discharge Follow up Referrals: Physician Referral - Within 1 Week with Deidre Morales Admission Information HPI (per Admitting provider): 55 year old male with no known past medical history presenting with Right leg swelling x 1 week. Patient used to follow up with Dr. Torres for PCP. Patient was at his usual state of health until last week when he started to notice right lower leg/calf swelling and pain. This progressed to the point that it affected his ambulation. No fever/chills. He denies chest pain, dyspnea, palpitations, nausea. Denies recent surgery, recent long plane or car rides, admits to being "a cough potato". 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 Patient presented to [facility] and was directed to [facility] for Right Leg US which showed Peroneal DVTs. He was then sent to the ED. Patient is hemodynamically stable. CT chest showed Right Upper Lobe Segmental Pulmonary Embolism. Hypercoagulable work up and Lovenox BID was started. On exam, patient is comfortable resting in bed. Denies chest pain, dyspnea, nausea, palpitations. Has mild-moderate right lower leg pain. No other symptoms. Physical Exam (per Admitting): General Appearance: WD/WN, no apparent distress Head: normocephalic, atraumatic Eyes: normal inspection, EOMI, sclerae normal ENT: normal ENT inspection, hearing grossly normal, pharynx normal Neck: supple, no adenopathy, thyroid normal, no JVD, trachea midline Respiratory/Chest: chest non-tender, lungs clear, normal breath sounds, no respiratory distress, no accessory muscle use Cardiovascular: regular rate, rhythm, no murmur Abdomen/GI: normal bowel sounds, non tender, soft Back: normal inspection, no CVA tenderness Extremities/Musculoskelatal: + pertinent finding (Right lower leg: (+) significant edema, moderate erythema and warmth, mild tenderness; left leg essentially normal) Neurologic/Psych: dialysis rn II-XII nml as tested, no motor/sensory deficits, alert , normal mood/affect, normal reflexes, oriented x 3 Skin: normal color, warm/dry, no rash Lymphatic: no adenopathy Hospital Course ACUTE PULMONARY EMBOLISM, RIGHT UPPER LOBE, SEGMENTAL ACUTE DVT RIGHT PERONEAL VEIN - seems to be unprovoked-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 no prior hx fo blood clot no family hx of thrombotic disease found to have rt lower ext Below Knee thrombus , Acute rt upper lobe PE - hypercoagulable work up ordered need to be followed echo : show normal wall motion , LV function , no evidence of pulmonary HTN - Lovenox 1mg/kg q12h started on Coumadin INR 7.5 today may need 6-9 months of anticoagulation - will need Hematology referral for 1st Unprovoked DVT duration of treatment, possible screening for underlying malignancy-colonoscopy screen pt mentions of chronic fatigue symptoms /no GAO tumor markers PSA , Alpha fetoprotein , CEA level -wnl will be discharged home today with Coumadin and Lovenox bridge Goal INR 2-3 MICROCYTIC ANEMIA/FE DEFICIENCY ANEMIA chronic had prior screening colonoscopy done in 2009 -was told normal repeat scope in 10 yrs Last CBC in 1999 show HB 12 MCV < 60 Hb electrophoresis in 2004 -increased Hb A2 suggestive of Thalassemia trait Fe panel suggestive of Fe deficiency anemia added Fe supplement will need to follow up with Heme onc as out pt -[facility] Lamb [facility] found to have external hemorrhoids with anal fissure - Anal fissure was treated medically with Topical Cardizem ointment no active bleeding reported recently had out pt screening colonoscopy tomorrow -7 yrs back , was normal study no drop in H&H while on active anticoagulation FULL CODE DISPOSITION lives at home with family DVT PROPHYLAXIS Lovenox sub q therapeutic dose /Coumadin DISPOSITION Discharge home today Lovenox bridge therapy and Coumadin pt will need to establish care with Family Physician -Interested to follow up with Deidre REES with [facility] pt will follow up with anticoagulation Clinic at [facility] for Pt/INR monitoring and Coumadin dosing Total time spent on discharge = 40 M INS This includes examination of the patient, discharge planning, medication reconciliation, and communication with other providers. Discharge Instructions Discharge Instructions Date of Service Jun 01, 2016. Admission Reason for Admission: Pulmonary Embolism Discharge Discharge Diagnosis / Problem: (1) DVT (deep venous thrombosis) (2) Pulmonary embolism VTE Date & Time Date of VTE Diagnosis: May 31, 2016 Time of VTE Diagnosis: 22:29 Discharge Goals Goal(s): Improve disease control, Diagnostic testing, Therapeutic intervention Activity Recommendations Activity Limitations: resume your previous activity Driving or Machine Use: no limitations . Instructions / Follow-Up Instructions / Follow-Up HOSPITAL FOLLOW UP WITH DEIDRE REES IN A WEEK , PLEASE CALL OFFICE FOR APPOINTMENT FOLLOW UP WITH ANTICOAGULATION CLINIC LAB WORK : Saturday06/05/16 FOR PT/INR [facility] [address] [place] [address] PLEASE FOLLOW UP AT THE ANTICOAGULATION CLINIC FOR FURTHER RECOMMENDATION Medication Instructions: * Warfarin is a medicine prescribed to prevent blood clots * Warfarin will thin your blood and help prevent new clots * Take your medications exactly as directed * Never skip a dose. Never take a double dose. If you miss a dose, take it as soon as you remember * It is important for your doctor to monitor your prothrombin time (PT). This is a lab test * Keep your appointment for lab tests Risk of Adverse Drug Reactions and Interactions: * Warfarin increases your risk of bleeding * The food you eat and other medications you take can affect how Warfarin works in your body * Ask your doctor about daily aspirin therapy * It is very important to talk with your doctor about all of the other medicines , antibiotics, vitamins or herbal products that you are taking * All of your medication must be approved by your doctor, including new medicines, as well as medicines you have taken before you started taking Warfarin Diet: * In order for Warfarin to work properly, it is important to keep your intake of Vitamin K as consistent as possible * You should avoid any sudden change in Vitamin K intake * Report any significant changes in your diet or weight to your doctor Call your Primary Care doctor if you experience any of the following: * Swelling or Pain in your leg * Sudden, continuous pain deep in a muscle * Pain that worsens when you are active or when you stand still for a long time * Chest Pain * Sudden Shortness of Breath * Rapid or pounding heart beat * Fainting * Dizziness * Cough with blood or bloody sputum * Sweating more than normal * Bruises * Heavy or uncontrolled bleeding * Blood in your urine, stool or vomit * Black or tarry stools Caring for Your Self at Home: * Avoid sitting, standing or lying down for long periods without moving your legs and feet * When traveling by car, stop to get out and move around at least once every 3 hours * On long airplane, train or bus rides, get up and move around when possible * If you can't get up, wiggle your toes and tighten your calves to keep your blood moving Follow Up: It is important for you to keep your follow up appointments with your medical provider. Current Hospital Diet Patient's current hospital diet: AHA Diet (Heart Healthy) Discharge Diet Recommended Diet: Regular Diet Pending Studies Studies pending at discharge: yes List of pending studies: PT/INR CHECK Work Instructions Return To Work: after follow-up (with FAMILY PHYSICIAN ) Medical Emergencies . Who to Call and When: Medical Emergencies: If at any time you feel your situation is an emergency, please call 911 immediately. . Non-Emergent Contact Non-Emergency issues call your: Primary Care Provider Contact Number: Deidre Morales . . "Provider Documentation" section prepared by Sarah Kerr. VTE Core Measure Inpt VTE Proph given/why not?: Enoxaparin (Lovenox)SQ, Warfarin (Coumadin) Reason no anticoag overlap I/P: Treatment provided - N/A Reason no anticoag overlap @DC: Treatment provided - N/A [place] Drug Monitoring Program Search Results: no issues identified Additional Copies To Deidre Morales
[2016-06-03] MEDS ORDERED: ENOXAPARIN 120 MG/0.8 ML SYR SQ SCH (14:15)
[2016-06-03 14:53] VITALS: BP 110/63; PULSE 61; TEMP 36.5; O2SAT 97
[2016-06-03] MEDS: WARFARIN SOD 7.5 MG TAB PO SCH (15:00)
[2016-06-04 15:36] LABS: AFP TUMOR MARKER SERUM 1.6 NG/ML (<6.1)
[2016-06-05] MEDS ORDERED: ASCO500T16 PO (11:36)
[2016-06-05 16:29] LABS: ANTITHROMBINIII ACTIVITY** 100 % activity (80-120); B2 GLYCOPROTEIN IGA <9 SAU (<=20); B2 GLYCOPROTEIN IGG <9 SGU (<=20); B2 GLYCOPROTEIN IGM <9 SMU (<=20); LUPUS ANTICOAGULANT** TC36573X Positive (Negative); PROTEIN C ACTIVITY** TC 1777X 173 % (70-180); PROTEIN S ACT(FUNCT)**1779X 89 % (70-150)
[2016-06-11 09:29] LABS: ISTAT HEMOGLOBIN 13.3 g/dl (14.0-18.0); ISTAT IONIZED CALCIUM 1.15 mmol/l (1.12-1.32)
[2016-06-29] MEDS ORDERED: WARF5TAB7 PO ×2 (10:42)
[2016-09-10] MEDS ORDERED: ASPI81TA28 PO (10:27)
== END 2016-06-03 13:15 | disposition home or self-care (01) | DRG 176 ==
LOC: ENRESERVDT → ENRESERVTM → C.EDB 20:30 → C.2T 23:33 → C.MS2W 06-01 21:51
PROVIDERS: ADMIT Internal Medicine; ATTEND Hospitalist
DX: I26.99 Other pulmonary embolism without acute cor pulmonale (principal); I82.491 Acute embolism and thrombosis of other specified deep vein of right lower extremity; D50.9 Iron deficiency anemia, unspecified

== ENCOUNTER → 2016-05-31 | Outpatient (CLI) | payer BC ==
[~2016-05-31] MED LIST: ASCO500T16 PO; ASPI81TA28 PO; CMD75 PO; FRRS300 PO; LVNIS120 SQ; WARF5TAB7 PO
--- NOTE | 2016-05-31 20:09 | DIAGNOSTIC IMAGING REPORT ---
ULTRASOUND RIGHT VENOUS DOPP LOWER EXT UNILAT CLINICAL HISTORY: Right leg swelling COMPARISON STUDY: No previous studies for comparison. FINDINGS: The common femoral superficial femoral and popliteal veins appear normal. There were fully compressible. Evaluation the calf was limited due to the patient's body habitus and swelling. The peroneal veins contained no visible flow and appeared noncompressible. The findings are consistent with a calf DVT. Color flow was visualized in the posterior tibial and anterior tibial veins. IMPRESSION: 1. Calf DVT involving the peroneal veins. 2. No evidence of [id number] thrombus Electronically signed by: Madhu Vick M.D. 05/31/2016 8:08 PM Dictated Date/Time: 05/31/2016 8:06 PM
== END | disposition home or self-care (01) ==
LOC: C.ULTR 19:15
PROVIDERS: ATTEND Family Medicine
DX: I82.491 Acute embolism and thrombosis of other specified deep vein of right lower extremity (principal)

== ENCOUNTER 2020-04-03 12:37 | Inpatient (IN) ==
[2020-04-03] MEDS ORDERED: OPTIRAY 320 125ml IV ONE ×2 (13:12→13:21)
[2020-04-03 13:38] LABS: Basophils # (auto) 0.01 K/uL (0-0.2); Basophils % (auto) 0.1 %; Eosinophils # (auto) 0.05 K/uL (0-0.5); Eosinophils % (auto) 0.6 %; Hematocrit (blood only) 35.6 % (42-52); Hemoglobin 11.5 g/dL (14.0-18.0); Immature Granulocytes # (auto) 0.02 K/uL (0.00-0.02); Immature Granulocytes % (auto) 0.2 %; Lymphocytes % (auto) 14.3 %; Mean Corpuscular Hemoglobin 18.6 pg (25-34); Mean Corpuscular Hgb Conc 32.3 g/dL (32-36); Mean Corpuscular Volume 57.7 fL (80-100); Monocytes # (auto) 0.97 K/uL (0.11-0.59); Monocytes % (auto) 11.5 %; Neutrophils # (auto) 6.17 K/uL (1.4-6.5); Neutrophils % (auto) 73.3 %; Platelet Count 292 K/uL (130-400); RDW Coefficient of Variation 15.1 % (11.5-14.5); RDW Standard Deviation 30.9 fL (36.4-46.3); Red Blood Count 6.17 M/uL (4.7-6.1); White Blood Count 8.42 K/uL (4.8-10.8)
[2020-04-03 13:52] LABS: INR 1.3 (0.9-1.1); Partial Thromboplastin Time 28.5 Seconds (21.0-31.0); Prothrombin Time 13.2 Seconds (9.0-12.0)
[2020-04-03 13:56] LABS: Microcytosis Present; Ovalocytes 1+; Tear Drop Cells 1+
[2020-04-03 14:10] LABS: Alanine Aminotransferase 34 U/L (12-78); Albumin Level 3.3 gm/dl (3.4-5.0); Aspartate Aminotransferase 16 U/L (15-37); Blood Urea Nitrogen 13 mg/dl (7-18); Calcium 8.4 mg/dl (8.5-10.1); Carbon Dioxide 28 mmol/L (21-32); Chloride 103 mmol/L (98-107); Creatinine Clr Calc Pharmacy 101.5 ml/min; Est GFR (African American) 89.4; Est GFR (Non-African American) 77.1; Glucose 104 mg/dl (70-99); Magnesium 2.2 mg/dl (1.8-2.4); Potassium 3.9 mmol/L (3.5-5.1); Sodium 136 mmol/L (136-145)
--- NOTE | 2020-04-03 14:14 | Emergency Department Note ---
History of Present Illness General Chief complaint: Swelling/Edema to Extremity Stated complaint: LT LEG SWELLING Time Seen by Provider: 04/03/20 12:45 History of Present Illness Maximum Pain Intensity: 7 59-year-old male who presents to the emergency department for evaluation of left lower extremity swelling and pain. The patient reports a prior history of right lower extremity blood clots as well as pulmonary emboli in 2013. The patient remembers having to undergo shots in his belly, then was placed on warfarin. The patient is also wondering if he may also have recurrent blood clots in the lung as well as he has had some shortness of breath. He reports that earlier last week, he started to develop some left ear and upper chest discomfort as well. He had a televisit with his family doctor who provided a prescription for a Z-Chris for possible ear infection. The patient reported that he started to develop worsening chest discomfort and shortness of breath after that. The patient has not had any productive cough, sore throat or loss of taste/smell, nausea, vomiting, abdominal pain, urinary symptoms or diarrhea. At the current time, the patient rates his leg discomfort a 7 out of 10, reporting that it now feels hard. He denies any recent injury to the leg, and also denies prior history of cellulitis or prior leg wounds. Patient also denies any other history of cardiac disease. Home Medications Medication Instructions Recorded Confirmed Type omeprazole 30 mg PO DAILY PRN 04/03/20 04/03/20 History Allergies Allergy/AdvReac Type Severity Reaction Status Date / Time codeine Allergy Severe "BAD, BAD Verified 04/03/20 13:01 REACTION" polyethylene glycol Allergy Severe CHEST Verified 04/03/20 13:01 PAIN, STOMACH PAIN AND UPSET topiramate Allergy Severe CONFUSION Verified 04/03/20 13:01 caffeine Allergy Intermediate SHAKINESS Verified 04/03/20 13:01 meloxicam Allergy Intermediate ITCHINESS, Verified 04/03/20 13:01 LIGHTHEADEDNESS, GROGGY clindamycin Allergy Unknown Unknown Unverified 04/03/20 13:03 docusate Allergy Unknown chest pain Verified 04/03/20 13:01 Penicillins Allergy Unknown RASH Verified 04/03/20 13:01 Sulfa (Sulfonamide Allergy Unknown . Verified 04/03/20 13:01 Antibiotics) Past Med/Surg History Medical History Hematuria Pulmonary embolism Right leg DVT Surgical History H/O knee surgery Social History Smoking Status: Never smoker marital status: Current Living Situation: Spouse current occupational status: retired Feels Safe at Home: Yes Review of Systems 10 system review was performed and was negative except for pertinent positives and negatives as indicated in history of present illness Physical Exam Vital Signs Vital Signs - 24 hr 04/03/20 12:42 04/03/20 13:21 04/03/20 13:23 Temperature 36.5 C Temperature Source Oral Pulse Rate 105 H 94 H Pulse Rate from SpO2 Sensor Respiratory Rate 20 19 Respiratory Effort / Characteristics Non-Labored Spontaneous Blood Pressure 185/93 H Blood Pressure Mean 123 Pulse Oximetry 96 Oxygen Delivery Method Room Air Room Air Sepsis Recent Fever Within 48 Hours No Sepsis New/Unexplained Change in Mental Status N/A Sepsis Action Taken by Nursing No Action Required 04/03/20 13:30 04/03/20 14:00 04/03/20 14:24 Temperature Temperature Source Pulse Rate 95 H 76 Pulse Rate from SpO2 Sensor Respiratory Rate 17 22 Respiratory Effort / Characteristics Blood Pressure 170/89 H Blood Pressure Mean 113 Pulse Oximetry Oxygen Delivery Method Sepsis Recent Fever Within 48 Hours Sepsis New/Unexplained Change in Mental Status Sepsis Action Taken by Nursing 04/03/20 14:57 04/03/20 14:59 04/03/20 15:00 Temperature Temperature Source Pulse Rate 95 H 92 H 91 H Pulse Rate from SpO2 Sensor 94 H 92 H 92 H Respiratory Rate 18 19 18 Respiratory Effort / Characteristics Blood Pressure 159/82 H Blood Pressure Mean 101 Pulse Oximetry 97 98 98 Oxygen Delivery Method Sepsis Recent Fever Within 48 Hours Sepsis New/Unexplained Change in Mental Status Sepsis Action Taken by Nursing 04/03/20 15:28 04/03/20 15:30 04/03/20 15:31 Temperature Temperature Source Pulse Rate 96 H 99 H 95 H Pulse Rate from SpO2 Sensor 97 H 99 H 97 H Respiratory Rate 22 19 21 Respiratory Effort / Characteristics Blood Pressure 166/93 H 160/95 H Blood Pressure Mean 116 109 Pulse Oximetry 99 98 97 Oxygen Delivery Method Sepsis Recent Fever Within 48 Hours Sepsis New/Unexplained Change in Mental Status Sepsis Action Taken by Nursing 04/03/20 16:43 04/03/20 16:44 04/03/20 17:00 Temperature Temperature Source Pulse Rate 93 H 96 H 96 H Pulse Rate from SpO2 Sensor Respiratory Rate 21 19 21 Respiratory Effort / Characteristics Blood Pressure 154/111 H 138/79 Blood Pressure Mean 117 101 Pulse Oximetry Oxygen Delivery Method Sepsis Recent Fever Within 48 Hours Sepsis New/Unexplained Change in Mental Status Sepsis Action Taken by Nursing 04/03/20 17:01 04/03/20 17:30 04/03/20 17:31 Temperature Temperature Source Pulse Rate 96 H 89 94 H Pulse Rate from SpO2 Sensor Respiratory Rate 25 H 17 20 Respiratory Effort / Characteristics Blood Pressure 157/88 H Blood Pressure Mean 108 Pulse Oximetry Oxygen Delivery Method Sepsis Recent Fever Within 48 Hours Sepsis New/Unexplained Change in Mental Status Sepsis Action Taken by Nursing 04/03/20 18:00 04/03/20 18:01 04/03/20 18:30 Temperature Temperature Source Pulse Rate 85 84 97 H Pulse Rate from SpO2 Sensor Respiratory Rate 19 18 15 Respiratory Effort / Characteristics Blood Pressure 150/99 H 162/112 H Blood Pressure Mean 130 126 Pulse Oximetry Oxygen Delivery Method Sepsis Recent Fever Within 48 Hours Sepsis New/Unexplained Change in Mental Status Sepsis Action Taken by Nursing 04/03/20 18:31 Temperature Temperature Source Pulse Rate 83 Pulse Rate from SpO2 Sensor Respiratory Rate 20 Respiratory Effort / Characteristics Blood Pressure Blood Pressure Mean Pulse Oximetry Oxygen Delivery Method Sepsis Recent Fever Within 48 Hours Sepsis New/Unexplained Change in Mental Status Sepsis Action Taken by Nursing CONSTITUTIONAL: Morbidly obese male in no acute distress on my exam. HEENT: Normocephalic, atraumatic. No scleral icterus or conjunctival injection/pallor. NECK: Full active range of motion without discomfort. No JVD or carotid bruits. LYMPHATICS: No cervical chain adenopathy. RESPIRATORY: Clear to auscultation bilaterally with no wheezing, crackles, rhonchi or stridor. CARDIOVASCULAR: Regular rate and rhythm with no murmurs, rubs or gallops. GASTROINTESTINAL: Bowel sounds present in all quadrants. Abdomen is protuberant but soft and nontender to palpation. MUSCULOSKELETAL: Examination shows asymmetrical left lower extremity edema when compared to the right. The patient does have pretibial pitting edema in both lower extremities. The left calf does appear firmer to palpation than the r ight. He also has mild tenderness through the popliteal space without any palpable masses. No joint effusion of the left knee. Negative logroll of the left hip. Pedal pulses are intact bilaterally. INTEGUMENTARY: No rash or other significant dermatologic conditions noted. HEMATOLOGIC: No ecchymosis or petechiae. PSYCHIATRIC: Positive affect. NEUROLOGIC: Lower extremities are sensory intact. Course Course Patient history and physical exam were performed. Nurses notes were reviewed. Vital signs were reviewed, showing an elevated blood pressure 185/93. The patient is also tachycardic at 105. The patient is otherwise afebrile and with normal O2 saturation on room air. Patient does not appear in any acute distr ess, although he does complain of notable left leg pain and swelling. Given the patient's prior history of DVT, and recent pulmonary symptoms, I did recommend that we do an extensive cardiopulmonary work-up, including CT angiography of the chest and ultrasound of the left lower extremity. The patient was in agreement. IV access was established, and labs were drawn. The patient refused any anal gesics or antiemetics. An ECG was performed showing a normal sinus rhythm with left axis deviation and incomplete right bundle branch block. The patient was placed on library monitor. Review of labs shows a normal white count without left shift or bandemia. Patient is mildly anemic with a hemoglobin of 11.5. Platelet count is normal. Coagulation studies shows an INR of 1.3. CMP showed normal electrolytes and LFTs. C-reactive protein and LDH is elevated. Procalcitonin is normal. Urinalysis shows trace hematuria without evidence for infection. Venous ultrasound of the left lower extremity shows a significant and complex DVT. Chest CT angiography also shows bilateral pulmonary emboli, as well as multifocal infiltrates concerning for pneumonia. At this point, the case was further discussed with Dr. Torrez, ED attending physician, who recommended discussing the case further with the hospitalist service regarding possible admission. The case was further discussed with Dr. Franklin, [facility] hospitalist, who reviewed today's work-up, and indicated the patient would be at high risk given his current multifocal pneumonia, moderate to heavy PE burden, as well as possibility of COVID-19 infection as well. I did order an [facility]Now COVID-19 test which was positive. Findings were also discussed with the patient, who agreed to admission. Please see the hospitalist service dictations for further treatment and final disposition. I did offer to initiate IV heparin, however Dr. Franklin has requested that I wait until they determine appropriate treatment. Administered Medications Discontinued Medications Apixaban (Apixaban 5 Mg Tablet) 10 mg PO ONE ONE Stop: 04/03/20 17:16 Last Admin: 04/03/20 18:06 Dose: 10 mg Documented by: [id number] Ioversol (Optiray 320 125ml) 120 ml IV ONCE ONE Stop: 04/03/20 13:13 Last Admin: 04/03/20 15:26 Dose: Not Given Documented by: [id number] Ioversol (Optiray 320 125ml) 120 ml IV ONCE ONE Stop: 04/03/20 13:22 Last Admin: 04/03/20 13:22 Dose: 120 ml Documented by: [id number] Critical Care Time Critical Care Time: Yes Total Critical Care Time: 35 I have personally spent approximately 35 minutes of critical care time in the direct management of this patient. This includes bedside care, interpretation of diagnostic studies, and testing, discussion with consultants, patient, and family members (family acquaintance who is employed in our department, who also spoke with family members at home), and other required patient management activities. This 35 minutes is in excess of all separately billable procedures. Medical Decision Making Medical Records Attestation: I reviewed the patient's medical records. Home Medications Current Medication List: was personally reviewed by me Laboratory Data Attestation: I reviewed the patient's lab results. Result diagrams: 04/03/20 13:25 04/03/20 13:25 Lab Results 04/03/20 04/03/20 04/03/20 Range/Units 13:25 13:25 13:25 WBC 8.42 (4.8-10.8) K/uL RBC 6.17 H (4.7-6.1) M/uL Hgb 11.5 L (14.0-18.0) g/dL Hct 35.6 L (42-52) % MCV 57.7 L (80-100) fL MCH 18.6 L (25-34) pg MCHC 32.3 (32-36) g/dL RDW Std Deviation 30.9 L (36.4-46.3) fL RDW Coeff of Bart 15.1 H (11.5-14.5) % Plt Count 292 (130-400) K/uL Immature Gran % (Auto) 0.2 % Neut % (Auto) 73.3 % Lymph % (Auto) 14.3 % [place] % (Auto) 11.5 % Eos % (Auto) 0.6 % Baso % (Auto) 0.1 % Neut # (Auto) 6.17 (1.4-6.5) K/uL Lymph # (Auto) 1.20 (1.2-3.4) K/uL [place] # (Auto) 0.97 H (0.11-0.59) K/uL Eos # (Auto) 0.05 (0-0.5) K/uL Baso # (Auto) 0.01 (0-0.2) K/uL Immature Gran # (Auto) 0.02 (0.00-0.02) K/uL Microcytosis Present Tear Drop Cells 1+ Ovalocytes 1+ PT 13.2 H (9.0-12.0) Seconds INR 1.3 H (0.9-1.1) APTT 28.5 (21.0-31.0) Seconds PTT Ratio 1.0 Sodium 136 (136-145) mmol/L Potassium 3.9 (3.5-5.1) mmol/L Chloride 103 (98-107) mmol/L Carbon Dioxide 28 (21-32) mmol/L Anion Gap 5.0 (3-11) BUN 13 (7-18) mg/dl Creatinine 1.04 (0.6-1.4) mg/dl Est Cr Clr Drug Dosing 101.5 ml/min Est GFR ( Amer) 89.4 Est GFR (Non-Af Amer) 77.1 BUN/Creatinine Ratio 12.0 (10-20) Glucose 104 H (70-99) mg/dl Calcium 8.4 L (8.5-10.1) mg/dl Magnesium 2.2 (1.8-2.4) mg/dl Ferritin (8-388) ng/ml Total Bilirubin 1.4 H (0.2-1) mg/dl AST 16 (15-37) U/L ALT 34 (12-78) U/L Alkaline Phosphatase 62 (45-117) U/L Lactate Dehydrogenase (87-241) U/L Total Creatine Kinase (39-308) U/L Troponin I < 0.015 (0-0.045) ng/ml C-Reactive Protein (0-0.29) mg/dl NT-Pro-B Natriuret Pep 124 (0-900) pg/ml Total Protein 7.2 (6.4-8.2) gm/dl Albumin 3.3 L (3.4-5.0) gm/dl Globulin 3.9 (2.5-4.0) gm/dl Albumin/Globulin Ratio 0.8 L (0.9-2) Procalcitonin (0-0.5) ng/ml COVID-19 Eval Order SARS-CoV-2 (PCR) (Negative) Influenza Type A (PCR) (Neg) Influenza Type B (PCR) (Neg) RSV (RT-PCR) (Neg) 04/03/20 04/03/20 04/03/20 Range/Units 16:41 16:41 16:41 WBC (4.8-10.8) K/uL RBC (4.7-6.1) M/uL Hgb (14.0-18.0) g/dL Hct (42-52) % MCV (80-100) fL MCH (25-34) pg MCHC (32-36) g/dL RDW Std Deviation (36.4-46.3) fL RDW Coeff of Bart (11.5-14.5) % Plt Count (130-400) K/uL Immature Gran % (Auto) % Neut % (Auto) % Lymph % (Auto) % [place] % (Auto) % Eos % (Auto) % Baso % (Auto) % Neut # (Auto) (1.4-6.5) K/uL Lymph # (Auto) (1.2-3.4) K/uL [place] # (Auto) (0.11-0.59) K/uL Eos # (Auto) (0-0.5) K/uL Baso # (Auto) (0-0.2) K/uL Immature Gran # (Auto) (0.00-0.02) K/uL Microcytosis Tear Drop Cells Ovalocytes PT (9.0-12.0) Seconds INR (0.9-1.1) APTT (21.0-31.0) Seconds PTT Ratio Sodium (136-145) mmol/L Potassium (3.5-5.1) mmol/L Chloride (98-107) mmol/L Carbon Dioxide (21-32) mmol/L Anion Gap (3-11) BUN (7-18) mg/dl Creatinine (0.6-1.4) mg/dl Est Cr Clr Drug Dosing ml/min Est GFR ( Amer) Est GFR (Non-Af Amer) BUN/Creatinine Ratio (10-20) Glucose (70-99) mg/dl Calcium (8.5-10.1) mg/dl Magnesium (1.8-2.4) mg/dl Ferritin 409.2 H (8-388) ng/ml Total Bilirubin (0.2-1) mg/dl AST (15-37) U/L ALT (12-78) U/L Alkaline Phosphatase (45-117) U/L Lactate Dehydrogenase 257 H (87-241) U/L Total Creatine Kinase 36 L (39-308) U/L Troponin I (0-0.045) ng/ml C-Reactive Protein 8.98 H (0-0.29) mg/dl NT-Pro-B Natriuret Pep (0-900) pg/ml Total Protein (6.4-8.2) gm/dl Albumin (3.4-5.0) gm/dl Globulin (2.5-4.0) gm/dl Albumin/Globulin Ratio (0.9-2) Procalcitonin 0.06 (0-0.5) ng/ml COVID-19 Eval Order SARS-CoV-2 (PCR) (Negative) Influenza Type A (PCR) (Neg) Influenza Type B (PCR) (Neg) RSV (RT-PCR) (Neg) 04/03/20 04/03/20 Range/Units 16:41 16:41 WBC (4.8-10.8) K/uL RBC (4.7-6.1) M/uL Hgb (14.0-18.0) g/dL Hct (42-52) % MCV (80-100) fL MCH (25-34) pg MCHC (32-36) g/dL RDW Std Deviation (36.4-46.3) fL RDW Coeff of Bart (11.5-14.5) % Plt Count (130-400) K/uL Immature Gran % (Auto) % Neut % (Auto) % Lymph % (Auto) % [place] % (Auto) % Eos % (Auto) % Baso % (Auto) % Neut # (Auto) (1.4-6.5) K/uL Lymph # (Auto) (1.2-3.4) K/uL [place] # (Auto) (0.11-0.59) K/uL Eos # (Auto) (0-0.5) K/uL Baso # (Auto) (0-0.2) K/uL Immature Gran # (Auto) (0.00-0.02) K/uL Microcytosis Tear Drop Cells Ovalocytes PT (9.0-12.0) Seconds INR (0.9-1.1) APTT (21.0-31.0) Seconds PTT Ratio Sodium (136-145) mmol/L Potassium (3.5-5.1) mmol/L Chloride (98-107) mmol/L Carbon Dioxide (21-32) mmol/L Anion Gap (3-11) BUN (7-18) mg/dl Creatinine (0.6-1.4) mg/dl Est Cr Clr Drug Dosing ml/min Est GFR ( Amer) Est GFR (Non-Af Amer) BUN/Creatinine Ratio (10-20) Glucose (70-99) mg/dl Calcium (8.5-10.1) mg/dl Magnesium (1.8-2.4) mg/dl Ferritin (8-388) ng/ml Total Bilirubin (0.2-1) mg/dl AST (15-37) U/L ALT (12-78) U/L Alkaline Phosphatase (45-117) U/L Lactate Dehydrogenase (87-241) U/L Total Creatine Kinase (39-308) U/L Troponin I (0-0.045) ng/ml C-Reactive Protein (0-0.29) mg/dl NT-Pro-B Natriuret Pep (0-900) pg/ml Total Protein (6.4-8.2) gm/dl Albumin (3.4-5.0) gm/dl Globulin (2.5-4.0) gm/dl Albumin/Globulin Ratio (0.9-2) Procalcitonin (0-0.5) ng/ml COVID-19 Eval Order CovFluRsv at [facility] SARS-CoV-2 (PCR) POSITIVE A* (Negative) Influenza Type A (PCR) Negative (Neg) Influenza Type B (PCR) Negative (Neg) RSV (RT-PCR) Negative (Neg) Imaging Data Attestation: I personally reviewed and interpreted this imaging study as follows: My Impression: CT angiography of the chest does show bilateral pulmonary emboli of a moderate burden, as well as multifocal consolidations concerning for pneumonia, possibly COVID-19 related. Venous ultrasound of the left lower extremity shows a complex DVT. Radiologist reports were reviewed. Radiologist's Impression: CT ANGIOGRAM OF THE CHEST CLINICAL HISTORY: Shortness of breath. Left lower extremity edema. Possible pulmonary embolism. History of remote pulmonary embolism. Right-sided chest pain. COMPARISON STUDY: May 2016 TECHNIQUE: Following the IV administration of 120 mL of Optiray-320, CT angiogram of the thorax was performed from the thoracic inlet to the lung bases utilizing the pulmonary embolus protocol. Images are reviewed in the axial, sagittal, and coronal planes. IV contrast was administered without complication. MIP imaging was performed. A dose lowering technique was utilized adhering to the principles of ALARA. CT DOSE: 953.96 mGy.cm FINDINGS: There is hepatic steatosis. Mediastinal lymph nodes are the upper limits of normal in size. There was no evidence of thoracic aortic dilatation. There are right upper lobe, right middle lobe, right lower lobe, left lower lobe, and lingular pulmonary filling defects indicative of acute pulmonary embolism. There is a small right pleural effusion There are multifocal airspace opacities with a peripheral distribution. Correlation with Covid 19 testing is recommended as this may represent Covid 19 pneumonia. IMPRESSION: 1. Bilateral pulmonary filling defects with moderate embolic burden. The findings are indicative of acute bilateral pulmonary embolism 2. Multifocal airspace opacities. Correlation with Covid 19 testing is recommended as this could represent Covid 19 pneumonia 3. Hepatic steatosis. 4. Small right pleural effusion US venous doppler LE LT CLINICAL HISTORY: Dyspnea COMPARISON STUDY: February 2019 FINDINGS: Grayscale, color-flow, and Doppler spectral waveform analysis was performed. No thrombus was visualized within the common femoral or superficial femoral veins. There is acute popliteal vein thrombus. There is thrombus within the anterior tibial vein as well as the posterior tibial and peroneal veins. IMPRESSION: Acute left lower extremity DVT with involvement of the popliteal, anterior tibial, posterior tibial, and peroneal veins. ECG Data Attestation: I personally reviewed and interpreted this ECG as follows: Indication: + chest pain and + SOB/dyspnea Rate (beats per minute): 94 Rhythm: + normal sinus ECG Intervals/blocks: + Incomplete right bundle branch block ECG [place]: + Left axis deviation ECG ST segments: + Normal ST segments Comparison ECG Date: from (05/31/2016) Change: the following changes noted (New incomplete right bundle barron block) Blood Pressure Blood Pressure Findings: Elevated blood pressure MDM Narrative Cardiac monitoring: An order was placed for continuous cardiac monitoring. The monitor shows a rate of 94 bpm with a normal sinus rhythm and incomplete right bundle branch block. cafeteria monitor history was reviewed throughout the evaluation, and no dysrhythmias were noted. Patient presents to the emergency department with primary complaint of left leg swelling and pain. The patient has had prior history of right lower extremity DVT and pulmonary emboli in the past; unfortunately, the patient has an extensive left lower extremity DVT today. With patient's symptoms, I also recommended CT angiogram of the chest, which also showed moderate to heavy PE burden. Unfortunately, the patient also has an overriding multifocal pneumonia secondary to COVID-19. This is places the patient at very high risk for further complication. His work-up today is not suggestive of myocardial infarction, congestive heart failure or pericarditis. The patient has a normal procalcitonin, indicating that the pneumonia is not likely bacterial. The patient also has no leukocytosis and is afebrile. Anticoagulation will be necessary given his DVT and pulmonary emboli. 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
[2020-04-03 14:15] LABS: Albumin Globulin Ratio 0.8 (0.9-2); Alkaline Phosphatase 62 U/L (45-117); Bilirubin,Total 1.4 mg/dl (0.2-1); Globulin 3.9 gm/dl (2.5-4.0); NT Pro B Type Natriuretic Pept 124 pg/ml (0-900); Total Protein 7.2 gm/dl (6.4-8.2); Troponin I < 0.015 ng/ml (0-0.045)
--- NOTE | 2020-04-03 14:53 | Ultrasound Report ---
US venous doppler LE LT CLINICAL HISTORY: Dyspnea COMPARISON STUDY: February 2019 FINDINGS: Grayscale, color-flow, and Doppler spectral waveform analysis was performed. No thrombus was visualized within the common femoral or superficial femoral veins. There is acute popliteal vein thrombus. There is thrombus within the anterior tibial vein as well as the posterior tibial and peroneal veins. IMPRESSION: Acute left lower extremity DVT with involvement of the popliteal, anterior tibial, managing partner ior tibial, and peroneal veins. ACT 112: Negative or not required by law. Electronically signed by: Madhu Vick M.D. 04/03/2020 2:52 PM
--- NOTE | 2020-04-03 15:03 | CT Scan Report ---
CT ANGIOGRAM OF THE CHEST CLINICAL HISTORY: Shortness of breath. Left lower extremity edema. Possible pulmonary embolism. Histo ry of remote pulmonary embolism. Right-sided chest pain. COMPARISON STUDY: May 2016 TECHNIQUE: Following the IV administration of 120 mL of Optiray-320, CT angiogram of the thorax was p erformed from the thoracic inlet to the lung bases utilizing the pulmonary embolus protocol. Images a re reviewed in the axial, sagittal, and coronal planes. IV contrast was administered without complica tion. MIP imaging was performed. A dose lowering technique was utilized adhering to the principles o f ALARA. CT DOSE: 953.96 mGy.cm FINDINGS: There is hepatic steatosis. Mediastinal lymph nodes are the upper limits of normal in size. There was no evidence of thoracic aortic dilatation. There are right upper lobe, right middle lobe, right lower lobe, left lower lobe, and lingular pulmon deandre filling defects indicative of acute pulmonary embolism. There is a small right pleural effusion There are multifocal airspace opacities with a peripheral distribution. Correlation with Covid 19 fanny ting is recommended as this may represent Covid 19 pneumonia. IMPRESSION: 1. Bilateral pulmonary filling defects with moderate embolic burden. The findings are indicative of a cute bilateral pulmonary embolism 2. Multifocal airspace opacities. Correlation with Covid 19 testing is recommended as this could repr esent Covid 19 pneumonia 3. Hepatic steatosis. 4. Small right pleural effusion ACT 112: Negative or not required by law. Electronically signed by: Madhu Vick M.D. 04/03/2020 3:01 PM
--- NOTE | 2020-04-03 17:05 | Electrocardiogram Report ---
Test Reason : Blood Pressure : / mmHG Vent. Rate : 094 BPM Atrial Rate : 094 BPM P-R Int : 162 ms QRS Dur : 106 ms QT Int : 370 ms P-R-T Axes : 033 -71 022 degrees QTc Int : 462 ms Normal sinus rhythm Left axis deviation Incomplete right bundle branch block Abnormal ECG When compared with ECG of 31-MAY-2016 22:33, Incomplete right bundle branch block is now Present Confirmed by Toni Gardner ([id number]) on 04/03/2020 5:05:45 PM Referred By: REFERRED SELF Confirmed By:Buster Gardner
[2020-04-03] MEDS ORDERED: APIXABAN 5 MG TABLET PO ONE (17:15)
[2020-04-03 17:23] LABS: C Reactive Protein 8.98 mg/dl (0-0.29); Ferritin 409.2 ng/ml (8-388)
[2020-04-03 17:45] LABS: Influenza A virus by PCR Negative (Neg); Influenza B virus by PCR Negative (Neg); RSV by PCR Negative (Neg)
[2020-04-03 17:57] LABS: SARS CoV2 RNA(COVID-19) InHosp POSITIVE (Negative)
--- NOTE | 2020-04-03 20:35 | History & Physical Report ---
Date of Service April 03, 2020 Assessment & Plan (1) Bilateral pulmonary embolism: Start Eliquis 10mg PO BID for 7 days then 5mg BID - discussed benefits risk using Eliquis vs. warfarin given his weight and elected for Eliquis at this time. Despite no hypoxia given clot burden and COVID-19 diagnosis will observe overnight (2) Pneumonia due to COVID-19 virus: No dexamethasone given moderate severity and O2 sats > 94%. 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 Admission and Anticipated Discharge Date Admission Date: Apr 03, 2020 History of Present Illness Chief Complaint: Left leg swelling Primary Care Provider: Brittny Jung Ricky Mcclendon is a 59 year old male who presents to the ER with left calf pain. He notes this has been ongoing for " quite some time" on and off but finds it difficult to give a timeline other than months. Previously thought it was just muscle spasms and would rub the area and it would go away. For the past few weeks he has felt generally unwell and his PCP treated him for a possible ear vs sinus infection which he usually gets this time of year due to right sided neck pain which has now resolved. However he continued to feel generally unwell and his left calf pain become more persistent therefore decided to come to the ER. He denies any fever, chills, cough, nausea/vomiting, abdominal or chest pain. Allergies Allergy/AdvReac Type Severity Reaction Status Date / Time codeine Allergy Severe "BAD, BAD Verified 04/03/20 13:01 REACTION" polyethylene glycol Allergy Severe CHEST Verified 04/03/20 13:01 PAIN, STOMACH PAIN AND UPSET topiramate Allergy Severe CONFUSION Verified 04/03/20 13:01 caffeine Allergy Intermediate SHAKINESS Verified 04/03/20 13:01 meloxicam Allergy Intermediate ITCHINESS, Verified 04/03/20 13:01 LIGHTHEADEDNESS, GROGGY clindamycin Allergy Unknown Unknown Unverified 04/03/20 13:03 docusate Allergy Unknown chest pain Verified 04/03/20 13:01 Penicillins Allergy Unknown RASH Verified 04/03/20 13:01 Sulfa (Sulfonamide Allergy Unknown . Verified 04/03/20 13:01 Antibiotics) Home Medications Medication Instructions Recorded Confirmed Type omeprazole 30 mg PO DAILY PRN 04/03/20 04/03/20 History Past Med/Surg History Medical History Hematuria Pulmonary embolism Right leg DVT Surgical History H/O knee surgery Social History Smoking Status: Never smoker Hx Alcohol Use: Yes Alcohol type: beer Hx Substance Use: No Preferred Language: Palauan Communication Ability: Effective Law [employer] Partner Required: No Beliefs That Will Affect Care: None marital status: Current Living Situation: Spouse current occupational status: retired Other Information That Helps Us Care for You: No Feels Safe at Home: Yes Safety Concerns: Feels Safe At This Time Assistive Devices: None Review of Systems Review of Systems: All systems reviewed & are unremarkable except as noted in HPI & below Physical Exam Constitutional: well developed, well nourished and + morbidly obese; no acute distress Eyes: PERRL, conjunctivae normal, anicteric sclerae ENMT: external ear and nose normal, oropharynx normal Neck: trachea midline, no thyromegaly Respiratory: normal respiratory effort and able to speak in complete sentences; no respiratory distress, no labored breathing, no retractions, does not use accessory muscles and no cough Auscultation: + crackles (faint bibasal); no rales, no rhonchi and no wheezes Cardiovascular: Rate/Rhythm: regular rate and regular rhythm Extremities: normal capillary refill, + calf tenderness (Left) and + pedal edema Gastrointestinal (Abdomen): normal bowel sounds, soft, nontender, no hepatosplenomegaly Musculoskeletal: no cyanosis or clubbing, extremities motor strength 5/5 Skin: no rashes, warm and dry Neurologic: moves all extremities and awake; no focal motor deficits and not confused Psychiatric: A+Ox3, euthymic affect Results & Data Results & Data ([facility]) Vital Signs (Past 12 Hours) Vital Signs Temp Pulse Pulse Resp BP BP Pulse Ox 04/03/20 20:23 90 22 156/96 H 97 04/03/20 18:31 83 20 04/03/20 18:30 97 H 15 162/112 H 04/03/20 18:01 84 18 04/03/20 18:00 85 19 150/99 H 04/03/20 17:31 94 H 20 04/03/20 17:30 89 17 157/88 H 04/03/20 17:01 96 H 25 H 04/03/20 17:00 96 H 21 138/79 04/03/20 16:44 96 H 19 154/111 H 04/03/20 16:43 93 H 21 04/03/20 15:31 95 H 21 97 04/03/20 15:30 99 H 19 160/95 H 98 04/03/20 15:28 96 H 22 166/93 H 99 04/03/20 15:00 91 H 18 98 04/03/20 14:59 92 H 19 159/82 H 98 04/03/20 14:57 95 H 18 97 04/03/20 14:24 170/89 H 04/03/20 14:00 76 22 04/03/20 13:30 95 H 17 04/03/20 13:23 94 H 19 04/03/20 12:42 36.5 C 105 H 20 185/93 H [address] ANGIOGRAM OF THE CHEST IMPRESSION: 1. Bilateral pulmonary filling defects with moderate embolic burden. The findings are indicative of acute bilateral pulmonary embolism 2. Multifocal airspace opacities. Correlation with Covid 19 testing is recommended as this could represent Covid 19 pneumonia 3. Hepatic steatosis. 4. Small right pleural effusion US venous doppler LE LT IMPRESSION: Acute left lower extremity DVT with involvement of the popliteal, anterior tibial, posterior tibial, and peroneal veins. Medications Administered ER Medications given: None ECG Indication: SOB/dyspnea Rate (beats per minute): 94 Rhythm: normal sinus Findings: + RBBB (incomplete) and + left axis deviation Comparison ECG Date: from (May 31, 2016) Change: the following changes noted (incomplete RBBB is new) Code Status & VTE Plan Code Status Full VTE Prophylaxis Plan VTE Prophylaxis will be ordered: Yes PG Care Time/CCT Total # of Minutes Spent Total Time Spent with Patient: Total time spent is greater than 50% in coordination of care (as documented) at patient's floor/unit and/or counseling patient: Coding Level of Care Code 46820 Initial Inpt Care Lvl 2 Diagnoses Bilateral pulmonary embolism I26.99 Pneumonia due to COVID-19 virus U07.1; J12.82 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
[2020-04-03] MEDS ORDERED: BETAMETH SOD PHOS/ACETATE IA 6 MG/ML IA ONE (22:42)
[2020-04-03] MEDS ORDERED: PANTOprazole 40 MG TAB PO PRN (23:15)
[2020-04-04 03:33] LABS: Appearance Urine Clear (Clear); Bacteria Urine Automated Negative (Negative); Bilirubin Urine Negative (Negative); Blood Urine 1+ (Negative); Color Urine Yellow; Glucose Urine UA Negative (Negative); Ketones Urine Negative (Negative); Leukocyte Esterase Urine Negative (Negative); Nitrite Urine Negative (Negative); Protein Urine Trace (Negative); Specific Gravity Urine 1.037 (1.000-1.030); Urobilinogen Urine Negative (Negative)
[2020-04-04] MEDS: APIXABAN 5 MG TABLET PO SCH ×2 (08:09→21:57)
[2020-04-04] MEDS: dexAMETHasone 6 MG in SYRINGE 0 ML IV SCH (15:17)
--- NOTE | 2020-04-04 19:12 | Hospitalist Progress Note ---
Date of Service April 04, 2020 Assessment & Plan (1) Bilateral pulmonary embolism: Eliquis 10mg PO BID for 7 days then 5mg BID thereafter. Spoke with coumadin clinical appeals reviewer today - would consider this a provoked VTE event given the COVID infection/pneumonia and sedentary lifestyle of late due to back and LLE pain. Plan 6 months of treatment with eliquis. Need to get alcaraz for him. Associated LLE DVT - see below. Fortunately not hypoxic at this time but given the pneumonia and the PEs will need to potentially do 2-step at d/c. (2) Left leg DVT: Eliquis 10mg BID x 7 days. Then 5mg BID thereafter. Plan 6 weeks of Rx. Technically a provoked event in setting of COVID-19 infection and sedentary lifestyle recently. (3) Pneumonia due to COVID-19 virus: Steroids for back pain/LLE radicular pain will help COVID to some extent. He is likely 2+ weeks out from onset of illness & thus is in resolution phase. No plasma or remdesivir indicated. Supportive care. (4) Morbid obesity with BMI of 40.0-44.9, adult: BMI 40 (5) Lumbar back pain with radiculopathy affecting left lower extremity: I suspect chronic LLE pain is radicular in origin from lumbar DJD/HNP/etc. This has hampered his ability to be more ambulatory and causes considerable pain. Calf DVT of LLE could cause pain but doubt the DVTs have been present for 2 months. Obtain MRI L-spine - start dexamethasone 6mg daily for pain. Updated pt's by phone; questions answered. PT/OT griselals. Ordered buspar for anxiety. Admission and Anticipated Discharge Date Admission Date: April 03, 2020 Subjective patient reports mild GAO when he gets up to the bathroom. he has occasional stabbing pleuritic type pain over right anterior chest but not constant. mild cough. has been sick for 2+ weeks with COVID more than likely, and also sick with URI symptoms. patient states he has been struggling with LLE pain for 1-2+ months or longer. pain is worst over posterior left calf. It causes difficulty walking. He does have lumbar back pain. Denies pain in right leg. took coumadin for first DVT/PE in 2017 and followed w/ coumadin clinic. I updated by phone - patient apparently has severe anxiety and she requests medication for him for this. Review of Systems Constitutional: + fatigue; no fever, no chills and no anorexia Respiratory: + dyspnea on exertion; no wheezing Cardiovascular: no chest pain Gastrointestinal: no abdominal pain, no nausea, no vomiting and no diarrhea/loose stools Musculoskeletal: + back pain Neurologic: as per Subjective / HPI and + loss of sensation Physical Exam Constitutional: + morbidly obese; no acute distress and no altered mental status ENMT: external ear and nose normal, oropharynx normal Cardiovascular: Rate/Rhythm: regular rate and regular rhythm Heart Sounds: normal S1 and normal S2; no murmur Vessels: posterior tibial pulses present and dorsalis pedis pulses present; no JVD left leg mildly larger than right leg (calf region especially) Gastrointestinal (Abdomen): normal bowel sounds, soft, nontender, no hepatosplenomegaly Musculoskeletal: Spine: + lumbar spinal tenderness and + paraspinal tenderness (mild); no thoracic spinal tenderness Neurologic: left leg - hip flexion 5/5; knee extension 5/5; ankle dorsi/plantarflexion 5/5; sensation intact all dermatomes left leg Psychiatric: Orientation: alert and oriented x 3 Results & Data Results & Data ([facility]) Vital Signs (Past 12 Hours) Vital Signs Temp Pulse Resp BP Pulse Ox 04/04/20 15:22 36.7 C 82 18 156/90 H 97 04/04/20 07:28 36.6 C 89 18 151/96 H 95 Laboratory Results Laboratory Results - last 24 hr 04/04/20 Unknown Urine Color Yellow Urine Appearance Clear Urine pH 5.0 Ur Specific [place] 1.037 H Urine Protein Trace H Urine Glucose (UA) Negative Urine Ketones Negative Urine Blood 1+ H Urine Nitrite Negative Urine Bilirubin Negative Urine Urobilinogen Negative Ur Leukocyte Esterase Negative Urine WBC (Auto) 1-5 Urine RBC (Auto) 5-10 H U Hyaline Cast (Auto) 1-5 U Epithel Cells (Auto) 5-10 H Urine Bacteria (Auto) Negative PG Care Time/CCT Total # of Minutes Spent Total Time Spent with Patient: Total time spent is greater than 50% in coordination of care (as documented) at patient's floor/unit and/or counseling patient: Coding Level of Care Code 38816 Subseq Hosp Care Lvl 3 Diagnoses Bilateral pulmonary embolism I26.99 Left leg DVT I82.402 Affected thrombotic vein of extremity: unspecified vein of extremity Chronicity: acute Pneumonia due to COVID-19 virus U07.1; J12.82 Morbid obesity with BMI of 40.0-44.9, adult E66.01; Z68.41 Lumbar back pain with radiculopathy affecting left lower extremity M54.16 (1) Left leg DVT Affected thrombotic vein of extremity: unspecified vein of extremity Chronicity: acute Qualified Code(s): I82.402 - Acute embolism and thrombosis of unspecified deep veins of left lower extremity
[2020-04-04] MEDS: PANTOprazole 40 MG TAB PO SCH (21:57)
[2020-04-04] MEDS: busPIRone 7.5 MG TAB PO SCH (21:58)
[2020-04-05 06:44] LABS: Hematocrit (blood only) 36.6 % (42-52); Hemoglobin 11.7 g/dL (14.0-18.0); Mean Corpuscular Hemoglobin 18.5 pg (25-34); Mean Corpuscular Volume 57.8 fL (80-100); Platelet Count 298 K/uL (130-400); RDW Coefficient of Variation 14.9 % (11.5-14.5); RDW Standard Deviation 30.5 fL (36.4-46.3); Red Blood Count 6.33 M/uL (4.7-6.1); White Blood Count 8.72 K/uL (4.8-10.8)
--- NOTE | 2020-04-05 06:46 | Magnetic Resonance Report ---
MRI OF THE LUMBAR SPINE WITHOUT CONTRAST CLINICAL HISTORY: L leg radicular pain, lumbar pain; ?HNP/stenosis? COMPARISON STUDY: Lumbar spine radiographs June 27, 2017. TECHNIQUE: Utilizing a 1.5 Maria Elena magnet and dedicated coil, multiplanar, multiecho imaging of the [facility] spine was performed without IV contrast. FINDINGS: For purposes of numbering on this exam, the L5-S1 disc space is assigned to axial image 27 of 30. The re is 3 mm anterolisthesis of L4 and L5 likely due to facet arthrosis. No intracanalicular mass or fl uid collection is present. The conus terminates at the mid L1 level. No suspicious marrow replacement is present. A 3 cm T1 and T2 hyperintense lesion within T12 vertebral body represents a hemangioma. There is mild disc space narrowing at L4-L5. Paravertebral soft tissues are unremarkable. L1-2: The central canal and neural foramen are patent. L2-3: The central canal and neural foramen are patent. There is facet arthrosis. L3-4: The central canal and neural foramen are patent. There is moderate facet arthrosis. L4-5: There is mild disc space narrowing with mild disc bulge. There is severe facet arthrosis. There is mild narrowing of the central canal and moderate narrowing of the lateral recesses. The neural fo ramen are patent. L5-S1: There is mild facet arthrosis. Central canal and neural foramen are patent. IMPRESSION: 1. Mild multilevel degenerative disc disease. No severe central canal stenosis. Mild central canal na rrowing at L4-L5. Moderate narrowing of the bilateral lateral recesses at this level, as described ab ove. 2. No disc herniations. 3. Severe multilevel facet arthrosis, most throughout the L4-L5 which results in slight anterolisthes is. ACT 112: Negative or not required by law. Electronically signed by: Javier Marquez M.D. 04/05/2020 6:45 AM
[2020-04-05 07:36] LABS: BUN Creatinine Ratio 21.3 (10-20); Calcium 8.9 mg/dl (8.5-10.1); Creatinine Clr Calc Pharmacy 110.2 ml/min; Est GFR (African American) 99.7; Est GFR (Non-African American) 86.1; Potassium 4.5 mmol/L (3.5-5.1)
[2020-04-05] MEDS: APIXABAN 5 MG TABLET PO SCH (08:03)
[2020-04-05] MEDS: dexAMETHasone 6 MG in SYRINGE 0 ML IV SCH (08:03)
[2020-04-05] MEDS: PANTOprazole 40 MG TAB PO SCH (08:03)
[2020-04-05] MEDS: busPIRone 7.5 MG TAB PO SCH (08:03)
--- NOTE | 2020-04-05 13:41 | Discharge Summary ---
Date of Service date of admission - April 03, 2020 date of discharge - April 05, 2020 Admission HPI Per Admitting Provider Ricky Mcclendon is a 59 year old male who presents to the ER with left calf pain. He notes this has been ongoing for " quite some time" on and off but finds it difficult to give a timeline other than months. Previously thought it was just muscle spasms and would rub the area and it would go away. For the past few weeks he has felt generally unwell and his PCP treated him for a possible ear vs sinus infection which he usually gets this time of year due to right sided neck pain which has now resolved. However he continued to feel generally unwell and his left calf pain become more persistent therefore decided to come to the ER. He denies any fever, chills, cough, nausea/vomiting, abdominal or chest pain. Principal Diagnosis 1. LLE DVT 2. Pulmonary emboli 3. Resolving COVID-19 pneumonia 4. Lumbar spine DJD with LLE radiculopathy Discharge Exam Constitutional + morbidly obese; no acute distress and no altered mental status ENMT external ear and nose normal, oropharynx normal Respiratory no respiratory distress Auscultation: + rales; no wheezes Cardiovascular Rate/Rhythm: regular rate and regular rhythm Heart Sounds: normal S1 and normal S2; no murmur Vessels: posterior tibial pulses present and dorsalis pedis pulses present; no JVD Gastrointestinal (Abdomen) normal bowel sounds, soft, nontender, no hepatosplenomegaly Musculoskeletal Spine: + lumbar spinal tenderness and + paraspinal tenderness (mild); no thoracic spinal tenderness Neurologic moves all extremities (Strength 5/5 x 4 exts); no focal motor deficits Psychiatric Orientation: alert and oriented x 3 Discharge Data Allergies Allergy/AdvReac Type Severity Reaction Status Date / Time codeine Allergy Severe "BAD, BAD Verified 04/03/20 13:01 REACTION" polyethylene glycol Allergy Severe CHEST Verified 04/03/20 13:01 PAIN, STOMACH PAIN AND UPSET topiramate Allergy Severe CONFUSION Verified 04/03/20 13:01 caffeine Allergy Intermediate SHAKINESS Verified 04/03/20 13:01 meloxicam Allergy Intermediate ITCHINESS, Verified 04/03/20 13:01 LIGHTHEADEDNESS, GROGGY clindamycin Allergy Unknown Unknown Unverified 04/03/20 13:03 docusate Allergy Unknown chest pain Verified 04/03/20 13:01 Penicillins Allergy Unknown RASH Verified 04/03/20 13:01 Sulfa (Sulfonamide Allergy Unknown . Verified 04/03/20 13:01 Antibiotics) Consultations PT, OT Ordered Studies 04/03/20 13:05 CT angio chest PE protocol Stat MPRESSION: 1. Bilateral pulmonary filling defects with moderate embolic burden. The findings are indicative of acute bilateral pulmonary embolism 2. Multifocal airspace opacities. Correlation with Covid 19 testing is recommended as this could represent Covid 19 pneumonia 3. Hepatic steatosis. 4. Small right pleural effusion US venous doppler LE LT Stat IMPRESSION: Acute left lower extremity DVT with involvement of the popliteal, anterior tibial, posterior tibial, and peroneal veins. 04/04/20 14:06 MR lumbar spine wo con Routine IMPRESSION: 1. Mild multilevel degenerative disc disease. No severe central canal stenosis. Mild central canal narrowing at L4-L5. Moderate narrowing of the bilateral lateral recesses at this level, as described above. 2. No disc herniations. 3. Severe multilevel facet arthrosis, most throughout the L4-L5 which results in slight anterolisthesis. Hospital Course (1) Bilateral pulmonary embolism: 2nd to COVID-19 pneumonia inducing a hypercoagulable state leading to his PEs and LLE DVT. Eliquis 10mg PO BID for 7 days then 5mg BID thereafter. This is likely a provoked VTE event given the COVID infection/pneumonia and sedentary lifestyle of late due to back and LLE pain. Plan 6 months of treatment with eliquis. Associated LLE DVT - see below. Fortunately did NOT require any supplemental oxygen during the hospitalization despite the COVID-19 pneumonia and the PEs. (2) Left leg DVT: Eliquis 10mg BID x 7 days. Then 5mg BID thereafter. Plan 6 months of treatment at minimum. Technically a provoked event in setting of COVID-19 infection and sedentary lifestyle recently. (3) Pneumonia due to COVID-19 virus: At time of admission the patient was likely 2+ weeks out from onset of illness & thus was entering the resolution phase of his COVID-19 infection. No plasma or remdesivir was indicated. He was never hypoxic during the hospital stay. He was initiated on decadron for 2 purposes - to treat his suspected LLE radiculopathy from his lumbar spine DJD, as well as treat his COVID-19 pneumon ia. He will finish a course of decadron to complete 10 days in total. (4) Lumbar back pain with radiculopathy affecting left lower extremity: I suspect chronic LLE pain is radicular in origin from lumbar DJD. This has hampered his ability to be more ambulatory and causes considerable pain. Calf DVT of LLE could cause pain but doubt the DVTs have been present for 2 months. He was started on dexamethasone 6mg daily for his LLE radicular pain and his COVID-19 pneumonia. Seen by PT/OT and cleared for home. He will be set up with [facility] to address his lumbar spine problems. (5) Morbid obesity with BMI of 40.0-44.9, adult: BMI 40 Total Time Total Time Spent Total Time Spent (In Minutes): 35 Total Time Includes: Examination of the Patient, Discharge Planning, Medication Reconciliation and Communication With Other Providers Discharge Plan Discharge Items Patient Disposition: Home - Self-Care Reason For Visit: PULMONARY EMBOLISM Discharge Diagnosis: 1. Left leg DVT blood clots 2. Pulmonary emboli - blood clots in lungs 3. COVID-19 pneumonia - resolving 4. lumbar spine arthritis/"DJD" (degenerative joint disease) Activity: As commented below Activity Comment: gradually increase activities over the next 1-2 weeks Non-emergency contact: Primary Care Provider and Specialist Call non-emergency contact if: you have any medication questions, your symptoms worsen and you have a fever Follow-up/Referrals: Venu Damon MD [Physician] - 04/27/20 10:15 am (see Dr Damon for your back in 2-3 weeks ) Brittny Jung [Primary Care Provider] - 04/12/20 10:50 am (please schedule a virtual visit with Dr Jung within 5-7 days ) Diet: Regular Addtl Attending Provider Instructions: You were treated for the conditions listed above in "discharge diagnoses." The DVT blood clots in the left leg and the blood clots in the lungs (pulmonary emboli, or "PEs") likely occurred in response to the COVID-19 pneu monia/infection. Fortunately you did NOT require any oxygen during your hospital stay. Your blood clots were treated with a blood thinner called ELIQUIS. I believe you are in the resolution phase of the COVID-19 infection/pneumonia. Also, you are unlikely to be contagious to others at this time as greater than 2 weeks have elapsed since the start of your symptoms. [id number] it is always better to err on the side of caution. I would advise another 5 days or so of staying at home rather than venturing outdoors to public places - just to be safe. Additionally, some of the left leg pain you have had for several months may be due to lumbar spine problems/arthritis/DJD. I would recommend you have an appointment with a spine doctor for his opinion. Some of the pain could be from your recent blood clots as well in that leg. Recommendations - 1. ELIQUIS blood thinner - * take 2 tablets x 1 tonight * then 2 tablets twice a day for 5 days starting tomorrow * then 1 tablet twice a day thereafter * you will need to take the ELIQUIS for 6 months * you do NOT need to adjust your diet in response to the ELIQUIS, nor have your blood monitored while on ELIQUIS 2. Dexamethasone 6mg once daily for 8 days starting tomorrow. This is a steroid for your lungs and your lumbar spine. Take with food. 3. While on the steroids please be sure to take the omeprazole to protect your stomach. 4. If you experience any small amount of bleeding or irritation from your hemorrhoids you can use your anusol suppositories or your anusol cream for this. 5. For occasional constipation you can take [id number] fiber, or miralax, or senakot, or dulcolax. 6. We certainly encourage individuals to get the COVID vaccine once they are eligible as your immunity to the virus will wear off over time. Please talk to your doctor about when it is recommended and safe to get the vaccine. 7. Continue to mask when leaving your home once out of isolation. 8. Purchase a blood pressure cuff from a pharmacy that fits on your upper arm and check your blood pressure daily. Give these results to your family doctor for them to review. Follow-up -- see separate section Return to [facility] if -- * you have recurrent fevers over 100 degrees * you have worsening shortness of breath or worsening chest pains * you have significant bleeding from any location as discussed below * any other concerns Addtl Hostel Parent Provider Instructions: Medication Instructions: Your blood clot condition is typically treated with an anticoagulant. Anticoagulants will thin your blood to help prevent new clots. Your blood thinner/anticoagulant is ELIQUIS. * You should take her medication exactly as directed. * Never skip a dose. * Never take a double dose. If you miss a dose, take it as soon as you remember. Call your Primary Care doctor if you experience any of the following: * Swelling or Pain in your leg * Sudden, continuous pain deep in a muscle * Pain that worsens when you are active or when you stand still for a long time * Chest Pain * Sudden Shortness of Breath * Rapid or pounding heart beat * Fainting * Dizziness * Cough with blood or bloody sputum * Sweating more than normal * Bruises * Heavy or uncontrolled bleeding * Blood in your urine, stool or vomit * Black or tarry stools * Heavy nosebleeds Caring for Your Self at Home: * Avoid sitting, standing or lying down for long periods without moving your legs and feet * When traveling by car, stop to get out and move around at least once every 3 hours * On long airplane, train or bus rides, get up and move around when possible * If you can't get up, wiggle your toes and tighten your calves to keep your blood moving When shaving your face please use an ELECTRIC SHAVER as opposed to a traditional straight blade; this will help prevent cuts on your face and excessive bleeding. Pending Studies at Discharge: No Stand-Alone Forms: [facility], Smoking Cessation Medications and DC Order Prescriptions: New Eliquis 5 mg Tablet 5 mg PO DIRECTED Qty: 72 RF: 0 dexamethasone 6 mg tablet 6 mg PO DAILY 8 Days Qty: 8 RF: 0 Continued betamethasone acet,sod phos 6 mg/mL suspension 12 mg IA ONCE Qty: 2 RF: 0 omeprazole 40 mg capsule,delayed release(DR/EC) 30 mg PO DAILY PRN (Reason: Indigestion) RF: 0 Discharge Orders: Discharge Order (Routine); Ordered 04/05/20 Ordered By: Imtiaz Eller Admission Data Admit Date/Time: 04/03/20 20:34 Attending Provider: Imtiaz Eller Admit Provider: Imtiaz Franklin Primary Care Provider: Brittny Jung Other Providers: Imtiaz Franklin Other Interventions: Discharge Summary Assessment (RN) Last Done: 04/05/20 14:22 Coding Level of Care Code D/C Day Management >30 mins Diagnoses Bilateral pulmonary embolism I26.99 Left leg DVT I82.402 Affected thrombotic vein of extremity: unspecified vein of extremity Chronicity: acute Pneumonia due to COVID-19 virus U07.1; J12.82 Lumbar back pain with radiculopathy affecting left lower extremity M54.16 Morbid obesity with BMI of 40.0-44.9, adult E66.01; Z68.41
== END 2020-04-05 15:43 | disposition home or self-care (01) | DRG 177 ==
LOC: ED 12:37 → SUATTDRO 20:34 → 3E 20:34